=== PATIENT | male | born 1985 | race African-American/Black ===

== ENCOUNTER 2018-03-06 22:32 | Emergency (ER) | payer SELFPAY ==
[2018-03-06 23:42] LABS: Base Excess-Venous 1.8 mmol/L (0 (+/- 2.5)); Bicarbonate (HCO3v) 26.4 mmol/L (1.0-85.0); CO2 Tension (PvCO2) 40.5 mmHg (41.0-51.0); Calcium, Ionized 1.12 mmol/L (1.12-1.32); Hemoglobin - Calc 14.3 g/dL (12.0-18.0); O2 Tension (PvO2) 60.3 mmHg (35.0-45.0); Potassium 3.9 mmol/L (3.4-4.7); T. Carbon Dioxide 27.6 mmol/L (1.0-85.0); pH (Venous) 7.422 (7.35-7.45); vO2 Saturation-calc 91.2 % (94-98)
--- NOTE | 2018-03-07 10:53 | RAD ---
LEFT SHOULDER 3 VIEWS: Date: 03/06/18 HISTORY: Left shoulder injury. FINDINGS: Acromioclavicular and glenohumeral alignment are within normal limits. No acute fracture, dislocation , or aggressive osseous erosions. Irregular configuration of the acromion is favored to represent a c ongenital process. IMPRESSION: No acute osseous abnormalities are demonstrated. POS: CORTES
== END 2018-03-07 00:10 | disposition home or self-care (01) ==
LOC: ERS 22:32
DX: M54.16 Radiculopathy, lumbar region (principal); R73.9 Hyperglycemia, unspecified; G62.9 Polyneuropathy, unspecified; F17.210 Nicotine dependence, cigarettes, uncomplicated; Z71.6 Tobacco abuse counseling; Z79.899 Other long term (current) drug therapy
CPT/HCPCS: 36416; 82330; 82435; 82803; 84132; 84295; 85014; 99406

== ENCOUNTER 2018-03-21 13:20 | Inpatient (IN) | payer OTHER ==
--- NOTE | 2018-03-21 16:26 | MRI ---
MRI OF THE LUMBAR SPINE 03/21/18 COMPARISON: None. HISTORY: Two week history of back pain, weakness and falls with back pain and incontinence. TECHNIQUE: Multiplanar and multisequence MR imaging of the lumbar spine is provided without contrast media. FINDINGS: There is diffuse significant central canal stenosis secondary to congenitally short pedicles. The sag ittal STIR imaging demonstrates no focal area of osseous marrow edema. There is no significant anterolisthesis or retrolisthesis noted. T12-L1: There is mild bilateral facet hypertrophy, disc space narrowing, disc desiccation, and mild c entral canal stenosis with no significant neural foraminal stenosis on either side. L1-2: There is disc space narrowing and disc desiccation with anterior osteophyte formation and minim al disc bulge. There is mild central canal stenosis. No neural foraminal stenosis. L2-3: Mild bilateral facet hypertrophy. Intervertebral disc height and signal intensity is within nor mal limits. Mild central canal stenosis and mild left neural foraminal stenosis. L3-4: Mild bilateral facet hypertrophy. Intervertebral disc height and signal intensity is within nor mal limits. Mild central canal stenosis and mild bilateral neural foraminal stenosis. L4-5: Mild bilateral facet hypertrophy and hypertrophy of the ligamentum flavum. Disc space narrowing , disc desiccation, disc bulge and right paracentral annular tear present. Mild/moderate central raquel l stenosis noted with moderate lateral recess stenosis on the right. Mild bilateral neural foraminal stenosis, right greater than left. L5-S1: Mild disc bulge. Mild bilateral facet hypertrophy. Mild central canal stenosis. Mild bilateral neural foraminal stenosis. Imaged retroperitoneal structures appear grossly unremarkable. IMPRESSION: Congenitally short pedicles lead to diffuse central canal stenosis. Superimposed degenerative change noted, most prominent at the L4-5 level as discussed above. POS: CORTES
[2018-03-21] MEDS ORDERED: Dexamethasone 4 mg/ml Vial ONE (17:30)
--- NOTE | 2018-03-21 17:39 | MRI ---
CERVICAL SPINE MRI WITHOUT CONTRAST 03/21/18 COMPARISON: None. HISTORY: Bilateral lower extremity paresthesias, weakness, falls TECHNIQUE: Multiplanar and multisequence MR imaging of the cervical is provided without contrast. FINDINGS: The sagittal STIR imaging demonstrates no focal area of osseous marrow edema. The cervical vertebral body height and alignment appears grossly unremarkable. There is diffuse central canal stenosis on the basis of congenitally short pedicles. The craniocervic al junction is intact. There is mild degenerative change at the atlantoaxial interspace. C2-3: Mild central canal stenosis. No significant neural foraminal stenosis. C3-4: Mild central canal stenosis. Mild bilateral neural foraminal stenosis, left greater than right. C4-5: Disc space narrowing and disc desiccation and anterior osteophyte formation noted. Disc bulge w ith central disc herniation noted. This cause severe central canal stenosis with flattening of the ce rvical cord. There is also probable increased T2 signal intensity within the cord at the C4-5 level s uggesting cord edema. There is moderate bilateral neural foraminal stenosis at C4-5 as well. C5-6: There is disc space narrowing and disc desiccation and disc bulge effacing the ventral thecal s ac and causing a mild to moderate degree of central canal stenosis. Moderate left and mild right neur al foraminal stenosis. C6-7: No significant central canal or neural foraminal stenosis. C7-T1: no significant central canal or neural foraminal stenosis. No worrisome focal area of osseous marrow signal abnormality. IMPRESSION: Congenitally short pedicles lead to diffuse cervical canal stenosis. At C4-5, there is disc space na rrowing and disc desiccation with a central disc herniation with severe central canal stenosis, adrianna ening of the cervical cord and increased signal intensity within the cervical cord suggesting edema. A neurosurgical consultation is recommended. Results called to Dr. Helms at 5:10 p.m., 03/21/18. Code CR POS: KANE
--- NOTE | 2018-03-21 17:55 | MRI ---
MRI OF THE THORACIC SPINE 03/21/18 COMPARISON: None. HISTORY: Paresthesias of the lower extremities, weakness and falls, abnormal reflexes. TECHNIQUE: Multiplanar and multisequence MR imaging of the thoracic spine is provided without contrast. FINDINGS: The sagittal STIR imaging demonstrates no focal area of osseous marrow edema. Thoracic vertebral body height and alignment appears within normal limits. T1-2: No significant central canal or neural foraminal stenosis. T2-3: No significant central canal or neural foraminal stenosis. T3-4: No significant central canal or neural foraminal stenosis. T4-5: No significant central canal or neural foraminal stenosis. T5-6: No significant central canal or neural foraminal stenosis. T6-7: No significant central canal or neural foraminal stenosis. T7-8: There is a central disc herniation which effaces the ventral thecal sac and abuts the ventral a spect of the cord with a mild degree of central canal stenosis. No significant neural foraminal steno sis. T8-9: There is a right paracentral disc herniation effacing the ventral thecal sac and abutting the v entral aspect of the cord with mild central canal stenosis. No significant neural foraminal stenosis. T9-10: There is a central disc herniation which effaces the ventral thecal sac and abuts the ventral aspect of the cord. No significant central canal or neural foraminal stenosis. T10-11: No significant central canal or neural foraminal stenosis. T11-12: No significant central canal or neural foraminal stenosis. T12-L1: No significant central canal or neural foraminal stenosis. There is no abnormal signal intensity identified within the thoracic cord. IMPRESSION: Multilevel degenerative disc disease with no severe central canal or neural foraminal stenosis seen w ithin the thoracic spine. POS: KANE
[2018-03-21] MEDS ORDERED: Ondansetron HCl/PF 4 MG/2 ML Vial IVP PRN (18:55)
[2018-03-21] MEDS ORDERED: Acetaminophen/Codeine 30-300mg Tablet PO PRN (18:55)
[2018-03-21] MEDS ORDERED: Morphine 4 MG/ML VIAL SLOW IVP PRN ×2 (19:15→19:16)
[2018-03-21] MEDS ORDERED: Ondansetron ODT 4 MG TAB PO PRN (19:18)
[2018-03-21 19:23] LABS: PTT 30.1 SEC (22.9-36.1)
[2018-03-21 19:30] LABS: INR-International Normal Ratio 1.1; Prothrombin Time 14.3 SEC (12.0-14.7)
--- NOTE | 2018-03-21 20:41 | CT ---
CERVICAL SPINE CT WITHOUT CONTRAST: 03/21/18 COMPARISON: None. HISTORY: Two weeks of inability to ambulate, neck pain, C4-5 stenosis seen on recent cervical spine MRI. TECHNIQUE: Serial axial CT imaging at 2.5 mm intervals from the skull base through the lung apices without contr ast. Coronal and sagittal reformatted imaging obtained. FINDINGS: The imaged lung apices are unremarkable. There is complete opacification of the imaged mastoid air cells bilaterally. The C1 ring is intact. The occipital condyles, dense, and C1-2 articulation demonstrate no acute findings. The atlantoaxial interspace, craniocervical junction, and cervicothoracic junction demonstrate no acu te findings. There is diffuse central canal stenosis on the basis on congenitally short pedicles. Evaluation for central canal and/or neural foraminal stenosis is limited on routine CT and was better performed on recent cervical spine MRI also performed 03/21/18. C2-3: Mild central canal stenosis. No osseous cause of neural foraminal stenosis. C3-4: Mild central canal stenosis. No osseous cause of significant neural foraminal stenosis. C4-5: There is disc space narrowing and prominent posterior osteophyte formation associated with disc bulge and central disc herniation. Severe central canal stenosis. Facet and uncovertebral osteophyte formation noted with enhancement on the neural foramina and moderate bilateral neural foraminal sten osis. C5-6: No osseous cause of significant central canal or neural foraminal stenosis. C6-7: No osseous cause of significant central canal or neural foraminal stenosis. C7-T1: No osseous cause of significant central canal or neural foraminal stenosis. There is a bifid spinous process of C7. No worrisome lytic or blastic bone lesion. No acute osseous abnormality is noted. The thyroid gland is diffusely enlarged. This could be better assessed on nonemergent followup thyroi d ultrasound. IMPRESSION: 1. Multilevel degenerative change noted within the cervical spine. The most significant finding being a disc osteophyte complex at C4-5 with resultant severe central canal stenosis, better assessed on recent cervical spine MRI. No fracture/dislocation seen. 2. Bilateral nonspecific mastoid air cell opacification. 3. Nonspecific enlargement of the thyroid gland. POS: JWNichelle
[2018-03-21] MEDS: Sodium Chloride 0.9% 1,000 ML IV SCH (21:52)
[2018-03-21] MEDS: Dexamethasone 4 mg/ml Vial SLOW IVP SCH (21:52)
[2018-03-21] MEDS: Morphine 4 MG/ML VIAL SLOW IVP PRN (21:53)
[2018-03-21] MEDS ORDERED: Dexamethasone 4 MG TAB PO SCH (22:00)
--- NOTE | 2018-03-21 22:21 | HP ---
HISTORY OF PRESENT ILLNESS: Mr. Duvall is a 33-year-old male who I saw in the emergency department [facility]. He presents with upper and lower extremity weakness bilateral left greater than right. He fell and hit his head about 2 weeks ago, getting a shower. Since that time, he is unable to bear weight with his legs. He has weakness x2 weeks, stabbing pain in the low back, legs, some numbness in the hands and arms, and weakness in the left greater than right arm. He went to the emergency department and was evaluated for numbness in his hands and feet on 03/06/2018 after his fall. An x-ray of the shoulder was completed and he was discharged home. Today MRI of the cervical spine was completed and shows a large C4-5 bulging disk with severe compression on the spinal cord. There is some edema associated with the impingement of the spinal cord. Thoracic MRI shows normal and lumbar MRI shows a congenitally short pedicles that lead to diffuse central canal stenosis, superimposed degenerative changes, most prominent at L4-5 levels. Neurosurgery was consulted because of the severe central canal stenosis and spinal cord impingement at C4-C5 with associated edema. ALLERGIES: No known drug allergies. CURRENT MEDICATIONS: 1. Gabapentin 300 mg oral 3 times a day. 2. Cyclobenzaprine 10 mg oral 3 times a day. PAST MEDICAL HISTORY: Includes low back and neck pain, shoulder pain. Patient has also been having urinary incontinence for the last 2 days. PAST SURGICAL HISTORY: No surgical history. PSYCHIATRIC HISTORY: No previous psychiatric history. SOCIAL HISTORY: Patient denies alcohol use, denies drug use. Patient currently uses tobacco, smokes cigarettes daily, has smoked for 10 years 3-4 cigarettes per day. PHYSICAL EXAMINATION: VITAL SIGNS: Stable. HEENT: Normocephalic, atraumatic. Hearing intact. Moist mucous membranes. Trachea is midline. Eyes: Pupils are equal and reactive to light. Extraocular muscles are intact. Sclerae is white, nonicteric. NECK: Range of motion limited due to pain. Positive Lhermitte's when looking up. MUSCULOSKELETAL: Upper extremity, left greater than right arm weakness as well as numbness in the hands and arms. Lower extremity, left greater than right weakness in the left lower extremity numbness in the feet and some numbness in the legs. Nondermatomal. Pulses are +2 in the lower extremities and upper extremities bilaterally. RESPIRATORY: Patient has bilateral symmetric chest rise, appears to be no shortness of breath. CARDIOVASCULAR: Patient has regular rate and rhythm. Normal S1, S2, heart sounds. No distal cyanosis or clubbing noted. NEUROLOGIC: Cranial nerves II-XII are grossly intact. Speech is fluent. He answers my questions appropriately. Patient has positive Babinskis, +4 reflexes in the lower extremity and upper extremities bilaterally. Positive Jasbir sign. Positive Lhermitte sign. Weakness in the legs and unable to walk. REVIEW OF SYSTEMS: Ten-point review of systems complete is otherwise negative, unless stated above in the HPI. PLAN: From neurosurgical standpoint, we will admit the patient to surgical non- ortho floor. We will control his pain overnight, since he has recently had some chicken 30 minutes before my exam, we will schedule an Anterior cervical diskectomy and fusion, possible posterior laminectomy and fusion for tomorrow morning. Ancef has been ordered to go to the OR with the patient in the morning. Consent has been written. I also ordered a CT of the cervical spine, which will help us should we decide to do a posterior fusion. We will keep the patient n.p.o. overnight. I have also consulted Physical therapy, Occupational therapy and Case management. He will also need a rehab consult postoperatively because of his weakness and inability to walk and intermittent urinary incontinence. If there are any further questions, contact Neurosurgery. WILLIAMS
[2018-03-21 23:46] VITALS: BMI 38.7
[2018-03-22] MEDS ORDERED: CEFAZOLIN/Water 2 GM/20 ML SYRINGE SLOW IVP SCH (06:30)
[2018-03-22] MEDS: Dexamethasone 4 mg/ml Vial SLOW IVP SCH ×3 (06:57→21:11)
[2018-03-22] MEDS: Sodium Chloride 0.9% 1,000 ML IV SCH ×2 (06:58→19:20)
[2018-03-22] MEDS ORDERED: CEFAZOLIN/Water 2 GM/20 ML SYRINGE ONE (09:31)
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
[2018-03-22] MEDS ORDERED: Thrombin 5000 UNITS/5 ML VIAL ONE (10:36)
[2018-03-22] MEDS ORDERED: Sodium Chloride 0.9% 20 ML ONE (10:36)
[2018-03-22] MEDS ORDERED: Bacitracin Zinc Ointment 30 gm TUBE ONE (10:36)
[2018-03-22] MEDS ORDERED: Fentanyl 250 MCG/5 ML VIAL ONE (10:56)
[2018-03-22] MEDS ORDERED: HYDROmorphone 0.5 MG/0.5 ML SYRINGE ONE (10:56)
[2018-03-22] MEDS ORDERED: Vecuronium 10 MG VIAL ONE ×2 (11:11→11:38)
[2018-03-22] MEDS ORDERED: Glycopyrrolate 0.2 MG/ML 5 ML SYRINGE ONE (11:38)
[2018-03-22] MEDS ORDERED: PHENYLEPHRINE-NS 100 MCG/ML 10 ML SYRINGE ONE (11:38)
[2018-03-22] MEDS ORDERED: Lidocaine 1% PF 5 ML VIAL ONE (11:38)
[2018-03-22] MEDS ORDERED: Dexamethasone 20 MG/5 ML VIAL ONE (11:38)
[2018-03-22] MEDS ORDERED: PROPOFOL 200 MG/20 ML VIAL ONE (11:38)
[2018-03-22] MEDS ORDERED: Sodium Chloride 0.9% 10 ML ONE (15:34)
[2018-03-22] MEDS ORDERED: HYDROmorphone 2 MG/ML VIAL SLOW IVP PRN (18:18)
[2018-03-22] MEDS ORDERED: Ondansetron HCl/PF 4 MG/2 ML Vial IVP PRN (18:18)
[2018-03-22] MEDS ORDERED: Promethazine HCl 25 MG/ML VIAL IM PRN (18:18)
[2018-03-22] MEDS ORDERED: Promethazine HCl 25 MG/ML VIAL SLOW IVP PRN (18:18)
[2018-03-22] MEDS ORDERED: Fentanyl 100 MCG/2 ML VIAL ONE (18:40)
[2018-03-22] MEDS: Morphine 4 MG/ML VIAL SLOW IVP PRN (21:11)
[2018-03-22] MEDS ORDERED: CEFAZOLIN 1 GM in Sodium Chloride 0.9% 100 ML IVPB SCH (22:00)
[2018-03-23] MEDS: Cyclobenzaprine 10 MG TAB PO PRN ×3 (00:28→18:06)
[2018-03-23] MEDS: Acetaminophen/Codeine 30-300mg Tablet PO PRN ×6 (00:28→21:22)
[2018-03-23] MEDS: Sodium Chloride 0.9% 1,000 ML IV SCH ×2 (05:08→13:40)
[2018-03-23] MEDS: Dexamethasone 4 mg/ml Vial SLOW IVP SCH ×3 (06:15→21:22)
--- NOTE | 2018-03-23 07:22 | PRG ---
DATE OF SERVICE: 03/23/2018 Mr. Duvall is a 33-year-old male status post day 1 from a posterior C3-C6 laminectomy and C4-C5 ACDF. This morning he does not notice any resolution of numbness or more strength in his upper extremitie s or lower extremities. He has not attempted to sit up or walk and he has not had any rounds of phys ical therapy to this point. I explained to him because of the severe compression on the spinal cord that it may take up to a year to get the maximum results from the surgery and the decompressive surge ry. I explained to him it is not likely to get back to 100% baseline as a baseline and he will likel y need some rehab upon discharge. There were no acute events overnight and his vital signs have been stable. Pain is well controlled with oral pain medication. He is able to tolerate regular diet. I ncision is clean, dry, and intact. Two sutures on the neck and absorbable sutures on the anterior ne ck. If there are any further questions, please feel free to contact Neurosurgery. We will have PT and OT work with him today and get him up to a chair. Keep SCDs for VTE prophylaxis.
--- NOTE | 2018-03-23 08:03 | PRG ---
DATE OF SERVICE: 03/23/2018 Puma Duvall is 1 day out from anterior to posterior cervical decompression for spondylitic myelopat hy worsened to a paraparesis by a fall in a subacute fashion. Mr. Duvall had surgery yesterday and he feels the sensation and control of his legs is improved. The left hand is not where he wants it to be, but it is not worse. He has some pain in the left shoulde r from his fall and I think he has a shoulder injury on top of the spinal cord issues. On examination, I see more fluent movements of the feet. There is still sustained clonus, but the up per motor neuron weakness he has is slightly improved. I am not sure he is ready to stand, but will start the process of getting occupational and physical therapy to work with him. He is going to need extensive amount of therapy and would benefit from inpatient rehabilitation. If his shoulder is an impediment to a rehabilitation we will have Orthopedics evaluate the joint itself.
--- NOTE | 2018-03-23 08:40 | OP ---
DATE OF PROCEDURE: 03/22/2018 SURGEON: Janie Marcos M.D. PASSENGER SERVICE SUPERVISOR: Pino Manley PA-C. PREOPERATIVE INDICATION: Prevent further neurological deterioration. 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 OPERATIVE PROCEDURES: 1. Decompressive laminectomy, medial facetectomy, C3, C4, C5, and C6. 2. Second operation during same anesthetic, anterior cervical diskectomy, intervertebral arthrodesis , placement of intervertebral biomechanical device, anterior cervical plating C4-C5, local morselized autograft, morselized allograft under operating microscope. PREOPERATIVE MEDICATION: Ancef 2 grams IV, Decadron 10 mg IV. DRAIN NUMBER: Zero. DRAIN TYPE: None. OPERATIVE IN DETAIL: Operation #1: The patient was brought to the operating room. General endotracheal anesthesia was in duced. The patient was carefully positioned prone on the operating table with his head immobilized i n Grayson melinda packager head attached to the skull and the Grayson attachment for the operating tab le. A lateral fluoro radiograph was used to plan our incision. Hair was removed from the back of th e scalp and neck with electric clippers. Her incision was marked radiographically in the back and ne ck was sterilely prepped and draped. We opened with a 10 blade knife and controlled bleeding with bi polar and monopolar cautery. We used monopolar cautery to dissect through subcutaneous tissues to th e ligamentum nuchae. We incised ligamentum in the midline and reflected the paraspinal muscles off t he spinous process and lamina of C6, C5, C4, C3, and the inferior portion of C2. A lateral fluoro ra diograph confirmed the levels upon which we were operating. We then placed self-retaining retractors , carried our dissection out to the facet joints and used a high-speed drill with a cony bit to th in the lamina on either side at C6, C5, C4 and C3. Using 1 and 2 mm Kerrison rongeurs, we fashioned complete laminotomy on both sides at C6, C5, C4 and C3. We then carefully cut across the yellow liga ment at C2-3 and C6-7. We controlled epidural veins posteriorly and freed L4 lamina from the dura. The dura decompressed well. We carried our laminectomy defect laterally until we encountered the fac et joints and we were lateral to the dura. We waxed the bone edges. We controlled bleeding with gen tle bipolar cautery. We irrigated copiously with bacitracin irrigation. We closed the wound in shakira omic layers. We applied a sterile dressing. Operation #2: Under the same anesthetic, the patient was loosened from the Marquez attachment. He was carefully rolled in the supine position on the second operative table and head supported by gel-f illed donut shaped head rest. A Marquez melinda headholder was removed. Hair was removed from the a nterior portion of the neck. A lateral fluoro radiograph was used to plan our incision. The rest of the neck was sterilely prepped and draped. We opened with a 10 blade knife and controlled bleeding with bipolar cautery. We dissected sharply to the platysma and cut this muscle in line with our inci vasu. We continued our dissection medial to the sternocleidomastoid lateral to the trachea and esoph mayra until we arrived to the prevertebral space. We placed a marker at C3-4, took a lateral fluoro r adiograph. We counted down to C4-5 and placed distraction pins at C4 and C5 and distracted across th e intervening interspace. We incised the interspace with a 15 blade knife and removed disk contents using curettes and rongeurs. The operative microscope was brought in the field. Under microscopic magnification using microsurgical techniques, we removed the remainder of the inter vertebral disk. We accessed the ventral epidural space with a micro curet and removed the posterior longitudinal ligament with a Kerrison rongeur across and can entire interspace. We removed posterior osteophytes from C4 and C5 across the entire interspace until the dura was well decompressed. I made sure both foramina were well decompressed. We could visualize a pulsatile spin al cord through the dura. We irrigated copiously, bacitracin irrigation. Curettes were used to prep are the endplates for grafting and we measured the height of the interspace with a bone rasp to 7 mm. A 7 mm PEEK intravertebral graft was brought in the field. This was loaded with demineralized bone matrix and morselized autograft. The autograft was prepared from our laminectomy bone, which was cl eaned of all soft tissue attachments, morselized and added to demineralized bone matrix as our fusion substrate. The PEEK graft was advanced into the interspace under radiographic guidance to the appro priate depth and then the operative microscope was taken back out of the field. Distraction pins wer e removed. A 12 mm anterior cervical plate was brought into the field. We drilled ship pilot dispatcher holes throu gh the plate into the vertebral body at C4 and C5. We affixed the plate using 14 mm screws. Fixed a ngle screws were used below and variable angle screws above. We engaged the locking mechanism over e ach of the 4 screws. We irrigated copiously with bacitracin irrigation. Hemostasis was excellent. We closed the wound in anatomic layers. We applied a sterile dressing. This was a clean case and no contamination.
[2018-03-23] MEDS: Morphine 4 MG/ML VIAL SLOW IVP PRN (10:43)
--- NOTE | 2018-03-23 14:34 | RAD ---
CERVICAL SPINE 4 VIEWS: Date: 03/23/18 HISTORY: Neck pain. Prior surgery. FINDINGS: Anterior fixation hardware is in place at the C4-5 level without perihardware lucency. Cervicothoraci c junction is obscured. No displaced fractures are apparent. Odontoid process is intact. IMPRESSION: Postoperative changes. No acute osseous abnormalities are demonstrated. POS: TORRES
[2018-03-24] MEDS: Acetaminophen/Codeine 30-300mg Tablet PO PRN ×4 (02:59→21:22)
[2018-03-24] MEDS: Cyclobenzaprine 10 MG TAB PO PRN ×3 (02:59→21:23)
[2018-03-24] MEDS: Dexamethasone 4 mg/ml Vial SLOW IVP SCH ×3 (06:54→21:22)
--- NOTE | 2018-03-24 06:58 | PRG ---
DATE OF SERVICE: 03/24/2018 Mr. 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 Mr. Duvall had a pop in his neck when he got up yesterday. X-rays are reassuring and his neurologica l examination is improved this morning. He can extend the smallest digit of the left hand, whereas y esterday before surgery he could not, he feels better sensation on that side. Mr. Duvall has had some small improvement since surgery which is a very good sign. He needs to stacie nue his improvement with the help of physical and occupational therapy. This would give him the best chance of getting back to ambulatory and independent status. Insurance will be an issue, but we are going to try to push for him and advocate on his behalf to get into inpatient rehabilitation.
[2018-03-24] MEDS: Sodium Chloride 0.9% 1,000 ML IV SCH ×3 (07:34→15:24)
[2018-03-24] MEDS: Morphine 4 MG/ML VIAL SLOW IVP PRN (09:19)
[2018-03-25] MEDS: Acetaminophen/Codeine 30-300mg Tablet PO PRN ×5 (00:46→21:07)
[2018-03-25] MEDS: Sodium Chloride 0.9% 1,000 ML IV SCH ×2 (06:16→13:49)
[2018-03-25] MEDS: Cyclobenzaprine 10 MG TAB PO PRN ×2 (06:17→17:03)
[2018-03-25] MEDS: Dexamethasone 4 mg/ml Vial SLOW IVP SCH ×3 (06:18→21:05)
[2018-03-25] MEDS ORDERED: Magnesium Citrate 300 ML BOT PO SCH (09:00)
[2018-03-25] MEDS: Docusate 100 MG CAP PO SCH ×2 (09:33→21:05)
[2018-03-25] MEDS: Bisacodyl 10 MG SUPP PR PRN (09:33)
[2018-03-25] MEDS ORDERED: hydrALAZINE 20 MG/ML VIAL SLOW IVP PRN (09:48)
--- NOTE | 2018-03-25 10:41 | PRG ---
DATE OF SERVICE: 03/25/2018 SUBJECTIVE: Mr. Duvall is a 33-year-old male who I saw in his room this morning. He has been working with Occupational Therapy and Physical Therapy. He is status post anterior cervical diskectomy and fusion at L4-L5 for large HNP and posterior laminectomy at L3 through L6. Case management consulted. The case management associate spoke to [facility] liaison who stated there is no [facility] beds are available. Please screen the patient for disability. Case management will continue to follow and find placement for patient along with the help of admin. Continue to work with Physical Therapy today. Patient continues to havemild weakness in the left upper and lower extremities > right, and some of the numbness and tingling in his arms, is starting to resolve. He still has significant weakness in the LE and is unable to walk by himself. If there is any further questions, please feel free to contact Neurosurgery. WILLIAMS
--- NOTE | 2018-03-25 11:21 | PRG ---
DATE OF SERVICE: 03/25/2018 SUBJECTIVE: Mr. Duvall is recovering from his anterior, posterior decompression fusion for severe ce rvical spondylitic myelopathy and paraparesis. In addition, the legs being unable to support him bef ore the surgery, he had no functional use of the left hand is now making progress. He is extending a ll 5 fingers of the left hand now. He does not get middle or ring finger fully extended, and that th ey are moving more than they had before in the strength and the hand is improved. Pain from surgery is abating. He has a slightly better control of his legs. Mr. Duvall is unable to walk. He will need a wheelchair and teaching to get in and out of a wheelcha ir. He will need bowel and bladder care teaching, need physical and occupational therapy to make the best recovery again. Anticipate that if he does not get this intervention, over the coming weeks th at he will return to the hospital with sacral decubitus ulcers, bowel and bladder issues, perhaps abhi n DVT and we could avoid those hospitalizations if we have placement for rehabilitation as unfortunat chrystal hard to come back as the patient does not have insurance. We have been keeping him in the hospit al working with our physical therapist and occupational therapist or social scientist and classification case manager can talk with our hospital administration about trying to find him inpatient rehabilitation. As long as he is in the hospital, we will continue to care for him.
--- NOTE | 2018-03-25 17:13 | ULT ---
BILATERAL LOWER EXTREMITY VENOUS DUPLEX SONOGRAM: 03/25/18 HISTORY: Bilateral leg pain and edema. FINDINGS: Each common femoral vein, greater saphenous junction were evaluated along with each femoral, deep fem oral, popliteal, and posterior tibial vein. There is good color and spectral doppler flow, compressio n, and augmentation. IMPRESSION: No sonographic evidence of DVT within either lower extremity. POS: TORRES
[2018-03-26] MEDS: Sodium Chloride 0.9% 1,000 ML IV SCH ×3 (00:05→19:29)
[2018-03-26] MEDS: Dexamethasone 4 mg/ml Vial SLOW IVP SCH ×3 (05:28→22:14)
[2018-03-26] MEDS: Acetaminophen/Codeine 30-300mg Tablet PO PRN ×4 (05:31→22:24)
--- NOTE | 2018-03-26 07:29 | PRG ---
DATE OF SERVICE: 03/26/2018 I saw Mr. Duvall in his hospital room this morning. He is making slow progress after his anterior, p osterior cervical decompression with fusion for extreme cervical spondylitic myelopathy. A place has been identified for him in [place]. I suspect this is the [facility] where he can get some rehabilitation. I think that placement is better than home. He is not safe for his activities of daily living and can place weight on his leg only to transfer. He will need to work a ggressively with physical therapy to regain balance and function in lower extremities and to work on his left upper extremity with Occupational Therapy. I am pleased with his progress thus far. His incisions look good. He will follow up in the office a f[facility].
--- NOTE | 2018-03-26 08:20 | PRG ---
DATE OF SERVICE: 03/26/2018 Mr. Duvall is a 33-year-old male, who I saw in his room this morning. He is status post anterior cer vical diskectomy and fusion at C4-5 and posterior laminectomy at C3-C6. Because of the large disk bu lge at C4-5, he has significant weakness in his upper and lower extremities. He is stronger on the r ight upper and lower extremities, greater than the left. He is able to sit up at bedside with physic al therapy and transferred to a chair. Case management has been working on placement, and because of insurance purposes, he has agreed to any facilities within [address] of [facility]. It i s likely that he will need a [facility] inpatient rehabilitation bed. Choice letters have been signed odalys Carvajal and Alice Dominguez. Overnight, there have been no acute events. His vital signs h ave been stable. He has been afebrile. If there are any further questions, please feel free to cont act Neurosurgery.
[2018-03-26] MEDS: Docusate 100 MG CAP PO SCH ×2 (08:25→19:35)
[2018-03-27] MEDS: Sodium Chloride 0.9% 1,000 ML IV SCH ×2 (05:31→16:59)
[2018-03-27] MEDS: Acetaminophen/Codeine 30-300mg Tablet PO PRN ×3 (05:41→21:11)
[2018-03-27] MEDS: Dexamethasone 4 mg/ml Vial SLOW IVP SCH ×3 (05:41→21:11)
--- NOTE | 2018-03-27 07:24 | PRG ---
DATE OF SERVICE: 03/27/2018 I saw Mr. Duvall in his hospital room this morning. He is making a slow, but steady recovery from ce rvical spondylitic myelopathy and greater than right arm weakness, all from a cervical stenosis and i ntervertebral disk disease over multiple segments of the cervical spine. Mr. Duvall had anterior, posterior decompression fusion over the weekend and is getting inpatient th erapy here while he is with us. Arrangements have been made for him to transfer to [facility] facility for continued therapy and I th ink that is exactly what he needs. Ultrasound of lower extremities was done recently and negative fo r DVT. We will continue mobilization. If his not mobilizing quickly and high risk for DVT, then, a prophylactic dose of low molecular weight heparin could start next week. We will continue to anticip ate transfer.
--- NOTE | 2018-03-27 07:45 | PRG ---
DATE OF SERVICE: 03/27/2018 SUBJECTIVE: Mr. Duvall is a 33-year-old male who I saw in his room this morning. He continues to goodwin ve left upper extremity weakness. The sensation is starting to resolve in his fingers. He has more range of motion with his fingers. Yesterday, he was able to stand up, transfer to a chair, take 3 st eps to the left and three steps to the right and go from sitting to standing twice. It is an improve ment from yesterday. He continues to have left lower leg weakness and realized mostly on his right l eg at this point for pulling his strength. Vital signs overnight have been stable and there are no acute deficits. Case management visited him 2 days ago in the setting of inpatient rehabilitation at [facility], not confirmed. We will continue to work with physical therapy until this transfer takes place. If there are any further questions, please feel free to contact Neurosurgery.
[2018-03-27] MEDS: Docusate 100 MG CAP PO SCH ×2 (08:37→21:11)
[2018-03-27] MEDS ORDERED: CEFAZOLIN 1 GM, Syringe 2.5 ML in Sterile Water 7.5 ML SLOW IVP SCH (22:00)
[2018-03-28] MEDS: Sodium Chloride 0.9% 1,000 ML IV SCH ×2 (02:26→14:16)
[2018-03-28] MEDS: Acetaminophen/Codeine 30-300mg Tablet PO PRN ×3 (05:54→21:19)
[2018-03-28] MEDS: Dexamethasone 4 mg/ml Vial SLOW IVP SCH ×3 (05:54→21:19)
[2018-03-28] MEDS: Docusate 100 MG CAP PO SCH ×3 (08:48→21:21)
--- NOTE | 2018-03-28 13:51 | PRG ---
DATE OF SERVICE: 03/28/2018 SUBJECTIVE: Mr. Duvall is hospital day #7 following anterior, posterior decompression. He is doing well this morning. States he feels if he is pleased with his progress. His anterior cervical wound is healing well and he is moving all extremities to command. He is able to raise his upper extremiti es antigravity and both of his lower extremities. He bends them up at the hips and knees with good s trength, although stable triparesis. Overall, we are working towards rehabilitation. We will contin ue in this regard.
[2018-03-28] MEDS: Bisacodyl 10 MG SUPP PR PRN (21:20)
[2018-03-29] MEDS: Docusate 100 MG CAP PO SCH ×3 (00:42→22:00)
[2018-03-29] MEDS: Sodium Chloride 0.9% 1,000 ML IV SCH ×3 (00:55→19:50)
[2018-03-29] MEDS: Acetaminophen/Codeine 30-300mg Tablet PO PRN ×3 (02:13→22:00)
[2018-03-29] MEDS: Dexamethasone 4 mg/ml Vial SLOW IVP SCH ×3 (05:54→22:30)
[2018-03-29] MEDS: Bisacodyl 10 MG SUPP PR PRN ×2 (09:00→22:01)
[2018-03-29] MEDS: Cyclobenzaprine 10 MG TAB PO PRN (15:40)
[2018-03-30] MEDS: Cyclobenzaprine 10 MG TAB PO PRN (04:00)
[2018-03-30] MEDS: Acetaminophen/Codeine 30-300mg Tablet PO PRN ×4 (04:00→22:02)
[2018-03-30] MEDS: Sodium Chloride 0.9% 1,000 ML IV SCH ×2 (05:55→14:43)
[2018-03-30] MEDS: Dexamethasone 4 mg/ml Vial SLOW IVP SCH ×3 (06:00→21:52)
[2018-03-30] MEDS: Docusate 100 MG CAP PO SCH ×2 (08:42→21:51)
--- NOTE | 2018-03-30 11:00 | ULT ---
ULTRASOUND WITH DOPPLER DUPLEX VENOUS LOWER EXTREMITIES BILATERAL: HISTORY: 33-year-old male with spinal cord injury with immobility with increased risk for DVT. TECHNIQUE: Color flow Doppler, spectral waveform analysis of pulsed Doppler, and person-scale imaging with ayde vasu and augmentation, were used to evaluate the bilateral common femoral, femoral, popliteal, bottle blower ior tibial, and superficial femoral, veins; and the proximal portions of the profunda femoral and gre ater saphenous, veins. FINDINGS: There is normal compressibility, demonstration of blood flow by color Doppler and pulsed Doppler, and response to augmentation, in all interrogated veins. There is minimal soft tissue edema in the dista l left leg. IMPRESSION: 1. No deep vein thrombosis in the left lower extremities. 2. Minimal soft tissue edema in the distal left leg. casper POS: CORTES
[2018-03-31] MEDS: Sodium Chloride 0.9% 1,000 ML IV SCH ×3 (00:05→21:21)
[2018-03-31] MEDS: Dexamethasone 4 mg/ml Vial SLOW IVP SCH ×3 (06:27→21:21)
--- NOTE | 2018-03-31 07:00 | PRG ---
DATE OF SERVICE: 03/30/2018 I visited Mr. Duvall in his hospital room this morning. He worked with physical therapy over the [facility]. post tensioning ironworker is looking for placement for him. Ultrasounds of the lower extremities have bee n negative for DVT. He will need physical therapy, occupational therapy, and changes to his home to make it safe for discharge.
--- NOTE | 2018-03-31 07:03 | PRG ---
DATE OF SERVICE: 03/31/2018 Mr. Duvall is 9 days out from anterior, posterior decompression fusion for cervical spondylitic myelo ashley with subacute progression paraparesis. Mr. Duvall worked with physical therapy yesterday. I was called by social work yesterday afternoon t hat it is very difficult to place him in any facility where he can get therapy due to insurance issue s. He was unaware of that conversation. Overnight, the vitals have been stable. A venogram done ye morning was negative for DVT. I do not see recorded fever. Blood pressures have been 130s to 140s. His neurological examination i s improving with better strength in hand. Legs are still quite stiff and spastic and his gait is uns teady. Before Mr. Duvall can be discharged from the hospital to home he will need more extensive therapy. Sue moreira has yet to make one lap around the third floor. He has not transferred himself from his bed to a hower and back independently. He does not have a shower chair at home. He does not bars next to his commode to help lift him from the commode. He does have a walker. I think the plan over the next few days is to work with our therapist on home exercises that he can d o and to identify the safety concerns for home. He may need a ramp for smooth entry into and out of the house. He would definitely need a shower chair and a walker and installation of safety bars in t he bathroom would be advisable as well. He is not independent yet.
--- NOTE | 2018-03-31 07:33 | PRG ---
DATE OF SERVICE: 03/29/2018 SUBJECTIVE: Mr. Duvall continues to demonstrate neurological stability for this anterior and posteri or wounds are healing very well. Biggest issue at this point is constipation. He does have positive flatus. I have spoken to him that this was simply take time to return. In fact that he does have p ositive flatus this is a good sign. We are still awaiting disposition.
[2018-03-31] MEDS: Docusate 100 MG CAP PO SCH ×2 (09:05→21:21)
[2018-03-31] MEDS: Cyclobenzaprine 10 MG TAB PO PRN ×2 (10:10→21:21)
[2018-03-31] MEDS: Acetaminophen/Codeine 30-300mg Tablet PO PRN ×3 (10:11→17:52)
[2018-03-31] MEDS ORDERED: Acetaminophen/Codeine 30-300mg Tablet PO PRN (20:17)
[2018-04-01] MEDS: Acetaminophen/Codeine 30-300mg Tablet PO PRN ×6 (00:34→19:57)
[2018-04-01] MEDS: Dexamethasone 4 mg/ml Vial SLOW IVP SCH ×3 (05:12→16:43)
[2018-04-01] MEDS: Sodium Chloride 0.9% 1,000 ML IV SCH ×2 (06:16→16:46)
[2018-04-01] MEDS ORDERED: Dexamethasone 4 mg/ml Vial SLOW IVP SCH (07:44)
--- NOTE | 2018-04-01 07:55 | PRG ---
DATE OF SERVICE: 04/01/2018 I saw Mr. Duvall in his hospital room this morning. He is 9 days out from anterior to posterior deco mpression with fusion for cervical spondylitic myelopathy with subacute progression to paraparesis an d left arm weakness. He is making progress with therapy. Arrangements are being made for a shower c hair and a walker at home. Grab bars will be installed by his family and a ramp will be built by a [employer]. These additions makes his home life safer, but I watched him walk today and his gait is not quite safe enough to be on his own. He does not have much strength in the left lower ex tremity and is off balance. He is going to continue his work with physical therapy here in the [facility] until his gait improves.
[2018-04-01] MEDS: Cyclobenzaprine 10 MG TAB PO PRN ×2 (08:16→16:48)
[2018-04-01] MEDS: Docusate 100 MG CAP PO SCH ×2 (08:16→19:52)
[2018-04-02] MEDS: Cyclobenzaprine 10 MG TAB PO PRN ×2 (00:45→20:16)
[2018-04-02] MEDS: Acetaminophen/Codeine 30-300mg Tablet PO PRN ×6 (00:45→23:29)
[2018-04-02] MEDS: Dexamethasone 4 mg/ml Vial SLOW IVP SCH ×4 (00:46→23:29)
[2018-04-02] MEDS: Sodium Chloride 0.9% 1,000 ML IV SCH ×3 (04:54→20:20)
[2018-04-02] MEDS: Docusate 100 MG CAP PO SCH ×2 (08:43→20:15)
--- NOTE | 2018-04-02 08:50 | PRG ---
DATE OF SERVICE: 04/02/2018 Mr. Duvall is a week and a half out from his anterior-posterior decompression and fusion for his cerv ical spondylitic myelopathy with subacute progression to severe disability. Mr. Duvall is recovering nicely from surgery. He is making a very predictable slow recovery from thi s. Still unsteady on his feet. His left hand is beginning to work better. His fingers extend fully , which is new and an improvement. He can push himself out of a chair and walk on stiff legs. He lo oks off balance to me. He is not sure his home is clean and safe for him yet. He will make sure nia t his family prepares the home for his discharge, if he is going to work on his walking today with ph ysical therapy.
[2018-04-03] MEDS: Dexamethasone 4 mg/ml Vial SLOW IVP SCH ×3 (08:52→23:31)
[2018-04-03] MEDS: Docusate 100 MG CAP PO SCH ×2 (08:53→19:58)
[2018-04-03] MEDS: Sodium Chloride 0.9% 1,000 ML IV SCH (09:09)
[2018-04-03] MEDS: Acetaminophen/Codeine 30-300mg Tablet PO PRN ×3 (10:03→23:32)
[2018-04-03] MEDS: Cyclobenzaprine 10 MG TAB PO PRN ×2 (11:59→20:00)
[2018-04-03] MEDS ORDERED: Chloraseptic Spray 180 ml Bottle PO PRN (14:58)
[2018-04-03] MEDS ORDERED: Dexamethasone 4 mg/ml Vial SLOW IVP SCH (16:00)
--- NOTE | 2018-04-03 16:15 | PDOC.FPRHP ---
- History of Present Illness Chief Complaint: lesions on hand, mouth and penis History of Present Illness: Patient presented two weeks ago with acute worsening of weakness in arms and an inability to walk. This was diagnosed as cervical spondylitic myleopathy and was surgically fixed. he has been recovering and getting rehab since. he has no prior medical problems. Patient had lesion on hand starting before he came, he burned a spot on his finger and now he has some irritation and mild pain in the skin there. He had some irriation coming from penis when his elizabeth catheter was removed and had some pus like discharge. now he has a rash and wetness around the shaft. it is itchy and painful. He also has a painful lesion in his mouth. it started a few days ago and it making eating difficult. he prefers cold foods because of the pain. - Allergies/Adverse Reactions Allergies Allergy/AdvReac Type Severity Reaction Status Date / Time No Known Allergies Allergy Unverified 03/21/18 19:11 - Home Medications Medication Instructions Recorded Confirmed Type Gabapentin 300 mg PO Q8HR 03/21/18 03/21/18 History Ibuprofen 200 mg PO PRN PRN 03/21/18 03/21/18 History Naproxen Sodium [Aleve] 220 mg PO PRN PRN 03/21/18 03/21/18 History Cyclobenzaprine [Flexeril] 10 mg PO TID PRN 03/22/18 03/22/18 History Acetaminophen With Codeine 1 - 2 each PO Q6HR PRN 04/03/18 04/03/18 History [Tylenol with Codeine #3 Tablet] Dexamethasone [Decadron] 1 mg PO DAILY 04/03/18 04/03/18 History Pantoprazole [Protonix] 40 mg PO DAILY 04/03/18 04/03/18 History tiZANidine HCl [Zanaflex] 4 mg PO TID PRN 04/03/18 04/03/18 History - History Date/Time: 04/06/182306 I personally evaluated the patient and discussed the management with Dr. Dozier on 04/03/2018 I agree with the History, Examination, Assessment and Plan documented above with any addition or exceptions noted below- Probable balanitis- start antifungals. Aphthaous ulcer- use topical analgesics. Burn on hamd- wound care consult. - Review of Systems General: reports: fatigue. denies: fever/chills, weight/appetite/sleep changes , night sweats Eyes: denies: eye pain, vision changes ENT: denies: nasal congestion, rhinorrhea Respiratory: reports: exercise intolerance. denies: cough, congestion, shortness of breath Cardiovascular: denies: chest pain, palpitation, edema, paroxysmal nocturnal dyspnea Gastrointestinal: denies: nausea, vomiting, diarrhea Genitourinary: denies: incontinence, dysuria, polyuria Skin: reports: rashes, lesions, itching. denies: jaundice Musculoskeletal: reports: pain. denies: tenderness, stiffness Neurological: denies: numbness, syncope Psychological: denies: anxiety, depression - Vital signs Selected Entries 04/03/18 11:52 Temperature 97.5 F L Pulse Rate 79 Blood Pressure 130/85 [Sitting] Respiratory 19 Rate O2 Sat by Pulse 100 Oximetry Oxygen Delivery Room Air Method - Physical Exam Constitutional: NAD, awake, alert and oriented, well developed -Constitutional: walking around room with walker. wearing a C collar. HEENT: normocephalic and atraumatic, PERRLA, grossly normal vision, TM's clear and intact -HEENT: small shallow ulcer seen on roof of mouth. no other notable mouth lesions. Neck: supple, FROM Chest: no-tender to palpation, no lesions Heart: RRR, normal S1/S2, no murmurs/rubs/gallops, pulses present, no edema Lungs: CTAB, no respiratory distress, good air movement Abdomen: soft, non-tender, bowel sounds present Musculoskeletal: normal structure, normal tone, ROM grossly normal -Neurological: bilateral strength in legs and arms demonstrated with walking with walker. CN exam normal grossly -Skin: R hand- hypopigmented, scarring tissue seen on 4th finger from recent burn. Penile shaft- area of skin folds with thick moisture. one 3x5 shallow ulcer seen on penis. Heme/Lymphatic: no unusual bruising or bleeding, no purpura Psychiatric: normal mood and affect, good judgment and insight, intact recent and remote memory FMR H&P: Results - Labs Result Diagrams: 04/04/18 07:06 04/04/18 07:06 FMR H&P: A/P - Problem List (1) Cervical spondylitic cord compression Current Visit: Yes Status: Acute Code(s): M47.12 - OTHER SPONDYLOSIS WITH MYELOPATHY, CERVICAL REGION (2) Candidiasis of penis Current Visit: Yes Status: Acute Code(s): B37.42 - CANDIDAL BALANITIS (3) Burn of finger Current Visit: Yes Status: Acute Code(s): T23.029A - BURN UNSP DEGREE OF UNSP SINGLE FINGER EXCEPT THUMB, INIT (4) Aphthous ulcer Current Visit: Yes Status: Acute (5) Penile ulcer Current Visit: Yes Status: Acute Code(s): N48.5 - ULCER OF PENIS (6) Constipation due to pain medication Current Visit: Yes Status: Acute Code(s): K59.03 - DRUG INDUCED CONSTIPATION - Plan # Cervical spondylitic myelopathy- Seems to be making good recovery after surgery. Pain management, cervical collar and rehab dispo per primary team. # apthous mouth ulcer- likely localized, but will rule out syphilis, HIV, Hep C. treat symptomatically with magic mouth wash # penile candidiasis and ulcer- moisture is consistent skin candidasis- will treat with nystatin powder. Will also rule out herpes with culture # R finger burn- consult wound care for dressing # penile discharge- seen after elizabeth removed. will test for GC chlamydia # consipation from pain medications- will add fleet enema today and start scheduled stimulant tomorrow Disposition/LOS: See primary team for managment of post operative course. Patient is suitable for outpatient treatment of all other issues. Attending Addendum - Attending Addendum Date/Time: 04/06/18 1844 I personally evaluated the patient and discussed the management with Dr. [] I agree with the History, Examination, Assessment and Plan documented above with any addition or exceptions noted below.
[2018-04-03] MEDS ORDERED: Nystatin Powder 15 GM BOT TOP PRN (16:56)
[2018-04-03] MEDS ORDERED: Aluminum & Magnesium Hydroxide 60 ML, Lidocaine 2% Viscous Solution 30 ML, diphenhydrAM... SSW PRN (16:58)
[2018-04-03] MEDS ORDERED: Fleet Enema 133 ML BOT PR SCH (17:15)
[2018-04-03 17:33] LABS: #Basophils 0.1 thou/uL (0.0-0.2); #Eosinphils 0.1 thou/uL (0.0-0.7); #Lymphocytes 2.3 thou/uL (1.20-3.40); #Monocytes 0.9 thou/uL (0.11-0.59); #Neutrophils 12.5 thou/uL (1.40-6.50); %Basophils 0.5 % (0.0-1.0); %Eosinophils 0.3 % (0.0-10.0); %Lymphocytes 14.4 % (21.0-51.0); %Monocytes 5.4 % (0.0-10.0); %Neutrophils 79.3 % (42.0-75.0); Hemoglobin 13.4 g/dL (14.0-18.0); Mean Corpuscular HGB CONC 34.6 g/dL (32.0-36.0); Mean Corpuscular Hemoglobin 32.9 pg (27.0-31.0); Mean Corpuscular Volume 94.9 fl (80.0-94.0); Mean Platelet Volume 7.5 fL (7.4-10.4); Platelet Count 261 thou/uL (130-400); RBC Distribution Width 11.6 % (11.5-14.5); Red Blood Cell (RBC) Count 4.09 mill/uL (4.70-6.10); White Blood Cell (WBC) Count 15.7 thou/uL (4.8-10.8)
--- NOTE | 2018-04-03 17:46 | PRG ---
DATE OF SERVICE: 04/03/2018 SUBJECTIVE: Mr. Puma Duvall is in hospital room today. He is actually more able to use his left h and and I have seen him previously. When I walked in the room and took off his ear phones with the l eft hand and held them there. His fingers are starting to extend fully. The hand has good motion. He is able to walk in the hallways today and made a lap with his walker. After two laps, however, he is very tired and had a rest for quite a bit. He still feels somewhat unsteady on his feet. Mr. Duvall has a number of questions that we answered for him today. Evidently, there is some lesion s in his oral mucosa in his right hand and his genital area that are painful and requested evaluation for those and we will make sure that happens. I suggested some Chloraseptic lozenges is to treat th e pain for now and I will defer to the medical team whether nystatin swish and spit or swish and swal low might be worthwhile. Mr. Duvall wonders about his dexamethasone and we were tapering that off. He wonders about his colla r, which can be removed for showers, but I like it on the rest of the time. He asked to stay at [facility] another day or two to work on his walking before and feels safe in his house. He will be seen over the weekend by Dr. Diaz, we will leave some ongoing prescriptions for him.
[2018-04-03 18:00] LABS: ALT (SGPT) 36 U/L (8-55); AST (SGOT) 16 U/L (5-34); Alkaline Phosphatase 242 U/L (40-150); Anion Gap 16 mmol/L (10-20); BUN (Urea Nitrogen) 19 mg/dL (8.9-20.6); Bilirubin, Total 0.2 mg/dL (0.2-1.2); Calc. Creatinine Clearance 186 mL/min (70-130); Calcium 9.3 mg/dL (7.8-10.44); Carbon Dioxide 23 mmol/L (22-29); Chloride 100 mmol/L (98-107); Estimated GFR-MDRD Greater than 90; Globulin 3.2 g/dL (2.4-3.5); Glucose 541 mg/dL (70-105); Potassium 5.1 mmol/L (3.5-5.1); Protein, Total 7.2 g/dL (6.0-8.3); Sodium 134 mmol/L (136-145)
[2018-04-03 18:21] LABS: Syphilis Antibody Nonreactive (Nonreactive); Syphilis Antibody Index 0.07 S/CO (<1.00 Non-Reactive)
[2018-04-03 18:24] LABS: HIV (1/2) Antibody/Antigen Non-Reactive (NonReactive); HIV 1/2 INDEX 0.08 S/CO (<1.00); Hep C IgG Ab Non-Reactive (NonReactive); Hep C Index 0.08 S/CO (0-0.79)
--- NOTE | 2018-04-04 06:34 | PDOC.FM ---
- Subjective Subjective: Puma Duvall seen at bedside this morning. He has no questions or concerns. Did well overnight. States he has no history or diagnosis of diabetes. States that he has been eating alot of sweets from the vending machine with his gf. Denies any fever, chills ,chest pain, dyspnea, n/v. Still complains of burning with urination since removal of the elizabeth. - Objective MAR Reviewed: Yes Vital Signs & Weight: Vital Signs (12 hours) Temp Pulse Resp BP BP Pulse Ox 04/04/18 04:00 98.0 F 82 16 128/77 98 04/04/18 00:56 97.3 F L 99 16 137/74 100 04/03/18 20:18 98.2 F 77 18 136/80 99 04/03/18 20:00 98.2 F 77 18 99 Weight Admit Weight 122.47 kg Weight 122.47 kg I&O: 04/02/18 04/03/18 04/04/18 06:59 06:59 06:59 Intake Total 1760 2520 3510 Balance 1760 2520 3510 Result Diagrams: 04/04/18 07:06 04/04/18 07:06 <Ranjeet Feliz - Last Filed: 04/04/18 08:48> - Objective Vital Signs & Weight: Vital Signs (12 hours) Temp Pulse Resp BP BP Pulse Ox 04/04/18 08:06 97.8 F 85 18 138/90 100 04/04/18 04:00 98.0 F 82 16 128/77 98 04/04/18 00:56 97.3 F L 99 16 137/74 100 Weight Admit Weight 270 lb Weight 270 lb I&O: 04/03/18 04/04/18 04/05/18 06:59 06:59 06:59 Intake Total 2520 3510 Balance 2520 3510 Result Diagrams: 04/04/18 07:06 04/04/18 07:06 <Shine Hanson - Last Filed: 04/04/18 10:57> Phys Exam - Physical Examination Constitutional: NAD HEENT: moist MMs, sclera anicteric Neck: no JVD, supple, full ROM Respiratory: no wheezing, no rales, no rhonchi, clear to auscultation bilateral Cardiovascular: RRR, no significant murmur Gastrointestinal: soft, non-tender, no distention Musculoskeletal: no edema, pulses present Neurological: non-focal, normal sensation, moves all 4 limbs Psychiatric: normal affect, A&O x 3 Skin: normal turgor, cap refill <2 seconds <Ranjeet Feliz - Last Filed: 04/04/18 08:48> Dx/Plan (1) Aphthous ulcer Status: Acute (2) Burn of finger Code(s): T23.029A - BURN UNSP DEGREE OF UNSP SINGLE FINGER EXCEPT THUMB, INIT Status: Acute (3) Candidiasis of penis Code(s): B37.42 - CANDIDAL BALANITIS Status: Acute (4) Cervical spondylitic cord compression Code(s): M47.12 - OTHER SPONDYLOSIS WITH MYELOPATHY, CERVICAL REGION Status: Acute (5) Constipation due to pain medication Code(s): K59.03 - DRUG INDUCED CONSTIPATION Status: Acute (6) Penile ulcer Code(s): N48.5 - ULCER OF PENIS Status: Acute (7) Hyperglycemia Code(s): R73.9 - HYPERGLYCEMIA, UNSPECIFIED Status: Acute - Plan Plan: (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 Pain management, cervical collar and rehab dispo per primary team. (2) Hyperglycemia: - No known diagnosis of diabetes - Patient has been receiving steroids - Blood sugar yesterday was 540 - Checking Hemoglobin A1c, accuchecks ACHS, Mod SSI (3) Elevated Alkaline Phosphatase: - Nonfasting Alk Phos was 242 - Rechecking fasting level today - checking GGT (3) Apthous mouth ulcer - likely localized - HIV, RPR, and Hep C negative - treat symptomatically with magic mouth wash (4) Penile candidiasis and ulcer - moisture is consistent skin candidasis - will treat with nystatin powder. - Will also rule out herpes with culture (5) R finger burn - consult wound care for dressing (6) Penile discharge - seen after elizabeth removed. - will test for GC chlamydia (7) Consipation from pain medications - fleet enema yesterday - on scheduled senna <Ranjeet Feliz - Last Filed: 04/04/18 08:48> Attending Addendum - Attending Addendum Date/Time: 04/04/18 8314 I personally evaluated the patient and discussed the management with Dr. Feliz I agree with the History, Examination, Assessment and Plan documented above with any addition or exceptions noted below. Puma Duvall is a 33 year old male neurosurgical patient, medical team was consulted for medical management of acute derm findings and chronic disease management. Patient's skin lesions are likely secondary to hospital stay along with chronically elevated blood sugars. He has a history of hyperglycemia that he states was diet controlled. He has been on steroids for the last week. Hemoglobin A1c is 8.1. Starting SSI, accuchecks ACHS, and metformin. Will continue to monitor sugars. Nystatin and oral diflucan for candidiasis. Will reevaluated tomorrow. <Shine Hanson - Last Filed: 04/04/18 10:57>
[2018-04-04] MEDS ORDERED: Dextrose 5% in Water 1,000 ML IV PRN (06:39)
[2018-04-04] MEDS ORDERED: Dextrose 50% Abboject 50 ML SYRINGE SLOW IVP PRN (06:39)
[2018-04-04] MEDS ORDERED: Insulin Regular 300 UNITS/3 ML VIAL SC PRN ×2 (06:39→19:15)
[2018-04-04 07:19] LABS: #Lymphocytes 3.5 thou/uL (1.20-3.40); #Monocytes 1.2 thou/uL (0.11-0.59); #Neutrophils 12.1 thou/uL (1.40-6.50); %Basophils 0.2 % (0.0-1.0); %Eosinophils 0.2 % (0.0-10.0); %Lymphocytes 20.7 % (21.0-51.0); %Monocytes 6.9 % (0.0-10.0); %Neutrophils 72.1 % (42.0-75.0); Hemoglobin 12.2 g/dL (14.0-18.0); Mean Corpuscular HGB CONC 33.2 g/dL (32.0-36.0); Mean Corpuscular Hemoglobin 31.9 pg (27.0-31.0); Mean Corpuscular Volume 96.2 fl (80.0-94.0); Mean Platelet Volume 7.5 fL (7.4-10.4); Platelet Count 244 thou/uL (130-400); RBC Distribution Width 11.6 % (11.5-14.5); Red Blood Cell (RBC) Count 3.82 mill/uL (4.70-6.10); White Blood Cell (WBC) Count 16.8 thou/uL (4.8-10.8)
[2018-04-04 07:26] LABS: Hemoglobin A1c 8.1 % (4.0-6.0)
[2018-04-04 07:43] LABS: ALT (SGPT) 34 U/L (8-55); AST (SGOT) 11 U/L (5-34); Albumin 3.6 g/dL (3.5-5.0); Alkaline Phosphatase 190 U/L (40-150); Anion Gap 12 mmol/L (10-20); BUN (Urea Nitrogen) 15 mg/dL (8.9-20.6); Bilirubin, Total 0.3 mg/dL (0.2-1.2); Calc. Creatinine Clearance 230 mL/min (70-130); Calcium 8.9 mg/dL (7.8-10.44); Carbon Dioxide 27 mmol/L (22-29); Chloride 100 mmol/L (98-107); Estimated GFR-MDRD Greater than 90; Gamma GT (GGT) 40 U/L (12-64); Globulin 2.4 g/dL (2.4-3.5); Glucose 399 mg/dL (70-105); Potassium 4.4 mmol/L (3.5-5.1); Sodium 135 mmol/L (136-145)
[2018-04-04] MEDS: Dexamethasone 4 mg/ml Vial SLOW IVP SCH ×2 (08:15→16:08)
[2018-04-04] MEDS: Senokot 8.6 MG TAB PO SCH (08:16)
[2018-04-04] MEDS: Acetaminophen/Codeine 30-300mg Tablet PO PRN ×3 (08:16→20:54)
[2018-04-04] MEDS: Docusate 100 MG CAP PO SCH ×2 (08:16→20:54)
[2018-04-04] MEDS: Insulin Regular 300 UNITS/3 ML VIAL SC PRN ×2 (11:02→17:50)
--- NOTE | 2018-04-04 14:42 | PRG ---
DATE OF SERVICE: 04/04/2018 I have been to Mr. Duvall's room a couple times, and he is in the shower when I have come. I will tr y and return later today to see how he is doing.
[2018-04-04] MEDS: metFORMIN 500 MG TAB PO SCH (17:50)
[2018-04-04] MEDS: Cyclobenzaprine 10 MG TAB PO PRN (20:54)
--- NOTE | 2018-04-04 21:07 | PRG-2 ---
DATE OF SERVICE: 04/04/2018 SUBJECTIVE: I attempted to see Mr. Duvall in his room today. However, he was in the shower and unab le to discuss his condition with me. I did discuss with the nurse that he has had no overnight event s and we are still waiting on disposition for discharge. The nursing staff understands to call the o ffice with any questions or concerns, otherwise we will follow up on the patient tomorrow.
[2018-04-05] MEDS: Acetaminophen/Codeine 30-300mg Tablet PO PRN ×4 (01:56→23:01)
[2018-04-05] MEDS: Dexamethasone 4 mg/ml Vial SLOW IVP SCH ×2 (01:56→10:05)
--- NOTE | 2018-04-05 06:24 | PDOC.FM ---
- Subjective Subjective: Puma Duvall is seen at bedside this morning. He states that he continues to have pain on the lesions on the shaft of his penis. He denies any fevers, penile discharge. Denies testicular pain. There were no acute events overnight. He has no questions. - Objective MAR Reviewed: Yes Vital Signs & Weight: Vital Signs (12 hours) Temp Pulse Resp BP Pulse Ox 04/05/18 03:29 98.1 F 94 16 129/78 94 L 04/04/18 20:00 98.1 F 94 16 94 L Weight Admit Weight 122.47 kg Weight 122.47 kg I&O: 04/03/18 04/04/18 04/05/18 06:59 06:59 06:59 Intake Total 2520 3510 1400 Balance 2520 3510 1400 Result Diagrams: 04/04/18 07:06 04/04/18 07:06 <Ranjeet Feliz - Last Filed: 04/05/18 07:54> - Objective Vital Signs & Weight: Vital Signs (12 hours) Temp Pulse Resp BP Pulse Ox 04/05/18 07:30 98.1 F 86 18 125/83 99 04/05/18 03:29 98.1 F 94 16 129/78 94 L Weight Admit Weight 270 lb Weight 270 lb I&O: 04/04/18 04/05/18 04/06/18 06:59 06:59 06:59 Intake Total 3510 1400 1010 Balance 3510 1400 1010 Result Diagrams: 04/04/18 07:06 04/04/18 07:06 <Shine Hanson - Last Filed: 04/05/18 10:17> Phys Exam - Physical Examination Constitutional: NAD HEENT: moist MMs, sclera anicteric Neck: no JVD, supple, full ROM Respiratory: no wheezing, no rales, no rhonchi, clear to auscultation bilateral Cardiovascular: RRR Gastrointestinal: soft, non-tender, no distention Musculoskeletal: no edema, pulses present Neurological: non-focal, normal sensation, moves all 4 limbs Psychiatric: normal affect, A&O x 3 Deviation from normal: shallow ulcerated appearing lesions on shaft of penis under foreskin <Ranjeet Feliz - Last Filed: 04/05/18 07:54> Dx/Plan (1) Aphthous ulcer Status: Acute (2) Burn of finger Code(s): T23.029A - BURN UNSP DEGREE OF UNSP SINGLE FINGER EXCEPT THUMB, INIT Status: Acute (3) Candidiasis of penis Code(s): B37.42 - CANDIDAL BALANITIS Status: Acute (4) Cervical spondylitic cord compression Code(s): M47.12 - OTHER SPONDYLOSIS WITH MYELOPATHY, CERVICAL REGION Status: Acute (5) Constipation due to pain medication Code(s): K59.03 - DRUG INDUCED CONSTIPATION Status: Acute (6) Penile ulcer Code(s): N48.5 - ULCER OF PENIS Status: Acute (7) Hyperglycemia Code(s): R73.9 - HYPERGLYCEMIA, UNSPECIFIED Status: Acute - Plan Plan: (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 Cont pain management, cervical collar and rehab dispo per primary team. (2) Hyperglycemia: - No known diagnosis of diabetes - Patient has been receiving steroids - Blood sugar yesterday was 540 - Accuchecks ACHS, Mod SSI, accuchecks have been ranging 399-445, required 12 U of SSI yesterday - Hemoglobin A1c was 8.1 (3) Elevated Alkaline Phosphatase: - Fasting was 190 - GGT normal - likely elevated from surgery (3) Apthous mouth ulcer - likely localized - HIV, RPR, and Hep C negative - treat symptomatically with magic mouth wash (4) Penile candidiasis and ulcer - moisture is consistent skin candidasis - will treat with nystatin powder. - Will also rule out herpes with culture - Add 3 day course of oral diflucan (5) R finger burn - consult wound care for dressing (6) Penile discharge - seen after elizabeth removed. - will test for GC chlamydia - patient states discharged has resolved (7) Consipation from pain medications - fleet enema yesterday - on scheduled senna <Ranjeet Feliz - Last Filed: 04/05/18 07:54> Attending Addendum - Attending Addendum Date/Time: 04/05/18 1014 I personally evaluated the patient and discussed the management with Dr. Feliz I agree with the History, Examination, Assessment and Plan documented above with any addition or exceptions noted below. Puma Duvall is a 33 year old male, medical team consulted for management of penile lesions and diabetes management. Penile lesions are likely penile candidiasis and we are treating with nystatin and diflucan. Patient's diabetes in uncontrolled at this time. Will increase sliding scale insulin and continue metformin. Will continue to monitor with accuchecks. Lesions will likely heal quicker with better blood sugar control. <Shine Hanson - Last Filed: 04/05/18 10:17>
[2018-04-05] MEDS: metFORMIN 500 MG TAB PO SCH ×2 (10:05→18:28)
[2018-04-05] MEDS: Fluconazole 100 MG TAB PO SCH (10:06)
[2018-04-05] MEDS: Docusate 100 MG CAP PO SCH ×2 (10:06→23:03)
[2018-04-05] MEDS: Cyclobenzaprine 10 MG TAB PO PRN ×2 (10:13→18:28)
--- NOTE | 2018-04-05 11:23 | PRG ---
DATE OF SERVICE: 04/05/2018 SUBJECTIVE: Mr. Duvall is hospital day #15, having undergone ACDF, anterior and posterior cervical f ixation with Dr. Marcos. The patient states he is doing well. He has had some slight amount of t ingling returned into the hands, but overall states that he is slowly but surely getting better. He continues with baseline left leg greater than left arm weakness. He has been able to walk. He is re sting comfortably in chair with a well-fitting [place] collar. His main issue now is disposition and w lillie are working on this. Please call with any changes in the patient's neurologic status. This is Bennett Damon PA-C dictating for Dr. Kimani Diaz.
[2018-04-05] MEDS: Insulin Regular 300 UNITS/3 ML VIAL SC PRN ×2 (13:19→18:30)
[2018-04-05] MEDS: Senokot 8.6 MG TAB PO SCH (13:34)
[2018-04-05 19:56] LABS: Chlamydia by PCR Not Detected (NotDetected); GC by PCR Not Detected (NotDetected)
--- NOTE | 2018-04-06 07:16 | PRG ---
DATE OF SERVICE: 04/06/2018 Mr. Puma Duvall had a reasonable weekend and we appreciate the help from our Family Practice rober moreira for his hand and penile lesions. His vital signs have been stable. He is continuing with his phys ical therapy in the hospital. He is unsure of the progress of improvements at home to make it safe f or him to discharge. He is unaware of any facility that will take him for his inpatient therapy. On examination, Mr. Duvall is stable from Friday. His hand and legs are definitely better than they were before surgery and is making some progress with therapy. He is now 2 weeks and 2 days out from anterior and posterior decompression with fusion for cervical m yelopathy. The coming week would be reasonable to consider a suture removal. We will get a venogram of the lower extremities and sure he has not developed DVT. I will continue with physical therapy i the hospital and occupational therapy. Our colleagues in Family Practice will continue to help wit h managing the lesions on the hand and genital area.
[2018-04-06] MEDS: Docusate 100 MG CAP PO SCH ×2 (09:00→21:46)
[2018-04-06] MEDS: metFORMIN 500 MG TAB PO SCH ×2 (09:00→17:39)
[2018-04-06] MEDS: Senokot 8.6 MG TAB PO SCH (09:01)
[2018-04-06] MEDS: Cyclobenzaprine 10 MG TAB PO PRN (09:01)
[2018-04-06] MEDS: Fluconazole 100 MG TAB PO SCH (09:01)
[2018-04-06] MEDS: Acetaminophen/Codeine 30-300mg Tablet PO PRN ×3 (09:01→21:43)
--- NOTE | 2018-04-06 11:08 | PDOC.FM ---
- Subjective Subjective: Patient feeling okay today. Mild pain at site of sutures but tolerable. Movement improving in RUE/RLE. Still c/o penile irritation/pain. Has not received nystatin powder. - Objective MAR Reviewed: Yes Vital Signs & Weight: Vital Signs (12 hours) Temp Pulse Resp BP BP Pulse Ox 04/06/18 08:10 97.9 F 90 18 96 04/06/18 07:30 97.6 F 82 14 123/81 96 04/06/18 03:15 97.9 F 90 18 130/84 99 04/06/18 00:00 98.1 F 97 18 135/88 97 Weight Admit Weight 122.47 kg Weight 122.47 kg I&O: 04/05/18 04/06/18 04/07/18 06:59 06:59 06:59 Intake Total 1400 2950 Balance 1400 2950 Result Diagrams: 04/04/18 07:06 04/04/18 07:06 <Triny Bellamy - Last Filed: 04/06/18 11:06> - Objective Vital Signs & Weight: Vital Signs (12 hours) Temp Pulse Resp BP BP Pulse Ox 04/06/18 19:56 98.3 F 95 16 144/78 H 100 04/06/18 16:08 98.2 F 91 16 126/84 99 04/06/18 11:23 98.2 F 96 16 125/84 100 Weight Admit Weight 122.47 kg Weight 122.47 kg I&O: 04/05/18 04/06/18 04/07/18 06:59 06:59 06:59 Intake Total 1400 2950 Balance 1400 2950 Result Diagrams: 04/04/18 07:06 04/04/18 07:06 <Jo Ann Gomez - Last Filed: 04/06/18 23:04> Phys Exam - Physical Examination Constitutional: NAD Respiratory: no wheezing, no rales, no rhonchi, clear to auscultation bilateral Cardiovascular: RRR, no significant murmur Gastrointestinal: soft, non-tender Musculoskeletal: no edema Neurological: moves all 4 limbs 3/5 RUE/RLE strength, 5/5 LUE/LLE strength Psychiatric: normal affect, A&O x 3 <Triny Bellamy - Last Filed: 04/06/18 11:06> Dx/Plan (1) Diabetes mellitus Code(s): E11.9 - TYPE 2 DIABETES MELLITUS WITHOUT COMPLICATIONS Status: Chronic QualifierTitle: Diabetes mellitus type: type 2 Diabetes mellitus nursing home insulin use: without emt intermediate use Diabetes mellitus complication status : without complication Qualified Code(s): E11.9 - Type 2 diabetes mellitus without complications (2) Aphthous ulcer Status: Acute (3) Burn of finger Code(s): T23.029A - BURN UNSP DEGREE OF UNSP SINGLE FINGER EXCEPT THUMB, INIT Status: Acute (4) Candidiasis of penis Code(s): B37.42 - CANDIDAL BALANITIS Status: Acute (5) Cervical spondylitic cord compression Code(s): M47.12 - OTHER SPONDYLOSIS WITH MYELOPATHY, CERVICAL REGION Status: Acute (6) Constipation due to pain medication Code(s): K59.03 - DRUG INDUCED CONSTIPATION Status: Acute - Plan Plan: (1) Cervical spondylitic myelopathy -Pain management, cervical collar and rehab dispo per primary team. (2) Type 2 DM: - No known diagnosis of diabetes however hgb A1C is 8.1 -may be secondary to chronic steroid use. Has been started on metformin and titrated to high dose which he is tolerating. - cont accuchecks ACHS, Mod SSI -will need outpatient follow up and cont mgmt. (3) Elevated Alkaline Phosphatase: - Nonfasting Alk Phos was 242 - downtrending now (3) Apthous mouth ulcer - HIV, RPR, and Hep C negative - treat symptomatically with magic mouth wash, now scheduled (4) Penile candidiasis and ulcer - moisture is consistent skin candidasis - will treat with nystatin cream scheduled - pending herpes cx, GC/C negative (5) R finger burn -wound care (7) Consipation from pain medications - scheduled senna <Triny Bellamy - Last Filed: 04/06/18 11:06> Attending Addendum - Attending Addendum Date/Time: 04/06/18 6413 I personally evaluated the patient and discussed the management with Dr. Bellamy. I agree with the History, Examination, Assessment and Plan documented above with any addition or exceptions noted below- Patient without complaints. Walking with PT using walker. Afebrile VSS. A/P: 1) Balanitis- continue diflucan and add antifungal cream. 2) aphthous ulcer- continue magic mouthwash. 3) Newly diagnosed DM- continue metformin and SSI. Continue to monitor accuchecks. <Jo Ann Gomez - Last Filed: 04/06/18 23:04>
[2018-04-06] MEDS ORDERED: Nystatin Cream 30 GM TUBE TOP SCH (11:15)
[2018-04-06] MEDS ORDERED: Aluminum & Magnesium Hydroxide 60 ML, diphenhydrAMINE 150 MG, Lidocaine 2% Viscous Solu... SSW SCH ×2 (11:15→21:00)
[2018-04-06] MEDS: Nystatin Cream 30 GM TUBE TOP SCH ×2 (15:01→21:43)
--- NOTE | 2018-04-06 15:29 | ULT ---
BILATERAL LOWER EXTREMITY VENOUS ULTRASOUND WITH DOPPLER: Date: 04/06/18 COMPARISON: 03/30/17. HISTORY: Spinal cord injury. Leg weakness. TECHNIQUE: Herrmann scale, color flow, Doppler imaging, and spectral waveform analysis performed of the left and rig ht lower extremity deep venous system. FINDINGS: Bilaterally, there is compressibility, presence of flow, and augmentation in the common femoral, femo ral vein, and popliteal vein. There is flow in bilateral greater saphenous veins, profunda veins, pos terior tibial veins, and anterior tibial veins. IMPRESSION: No evidence of thrombus in the left or right lower extremity deep venous system. POS: [facility]
[2018-04-06] MEDS: Aluminum & Magnesium Hydroxide 60 ML, Lidocaine 2% Viscous Solution 30 ML, diphenhydrAM... SSW SCH (21:43)
[2018-04-07] MEDS: Acetaminophen/Codeine 30-300mg Tablet PO PRN ×3 (01:50→22:46)
--- NOTE | 2018-04-07 07:08 | PRG ---
DATE OF SERVICE: 04/07/2018 Mr. Duvlal tells me his father has not put in the grab bars in his bathroom at home yet. He is not s ure if the place is ready for him, but he is going to check with his mother today. He was ambulatory yesterday. He had an ultrasound of lower extremities. On examination, Mr. Duvall has gradually increasing neurological function. He tells me he can stand from a seated position using the arm rest and a walker. He will need help getting out of bed in the morning at home. He is not sure who would be there to help him, but he thinks his mother and sister will be able to do so. We will get to neuro therapy on Mr. Duvall today. Once it is safe for him to be discharged we will l et him go home. He would benefit from inpatient rehabilitation, but evidently that is not an option for him given his insurance issues.
[2018-04-07] MEDS: Docusate 100 MG CAP PO SCH ×2 (08:23→22:36)
[2018-04-07] MEDS: Fluconazole 100 MG TAB PO SCH (08:23)
[2018-04-07] MEDS: metFORMIN 500 MG TAB PO SCH ×2 (08:23→16:39)
[2018-04-07] MEDS: Senokot 8.6 MG TAB PO SCH (08:24)
[2018-04-07] MEDS: Nystatin Cream 30 GM TUBE TOP SCH ×3 (08:24→22:35)
--- NOTE | 2018-04-07 09:03 | PDOC.FM ---
- Subjective Subjective: Patient sitting at bedside in chair this morning. He used the nystatin cream yesterday and states it has helped with the pain. He had declined insulin last night bc the insulin is making his body sore all over. He thinks he has been sore since getting insulin. He has no other complaints. - Objective MAR Reviewed: Yes Vital Signs & Weight: Vital Signs (12 hours) Temp Pulse Resp BP BP Pulse Ox 04/07/18 08:35 96.9 F L 104 H 16 118/77 94 L 04/07/18 07:00 98.2 F 96 18 04/07/18 03:05 98.2 F 96 18 117/76 100 04/07/18 00:00 98.2 F 94 16 122/82 98 04/06/18 23:49 98.2 F 94 16 122/82 98 Weight Admit Weight 122.47 kg Weight 122.47 kg I&O: 04/06/18 04/07/18 04/08/18 06:59 06:59 06:59 Intake Total 2950 240 Balance 2950 240 Result Diagrams: 04/04/18 07:06 04/04/18 07:06 <Triny Bellamy - Last Filed: 04/07/18 09:10> - Objective Vital Signs & Weight: Vital Signs (12 hours) Temp Pulse Resp BP BP Pulse Ox 04/07/18 11:44 96.6 F L 107 H 16 148/86 H 94 L 04/07/18 08:35 96.9 F L 104 H 16 118/77 94 L 04/07/18 07:00 98.2 F 96 18 04/07/18 03:05 98.2 F 96 18 117/76 100 Weight Admit Weight 122.47 kg Weight 122.47 kg I&O: 04/06/18 04/07/18 04/08/18 06:59 06:59 06:59 Intake Total 2950 240 Balance 2950 240 Result Diagrams: 04/04/18 07:06 04/04/18 07:06 <Jo Ann Gomez - Last Filed: 04/07/18 12:06> Phys Exam - Physical Examination Constitutional: NAD HEENT: moist MMs Respiratory: no wheezing, no rales, no rhonchi, clear to auscultation bilateral Cardiovascular: RRR, no significant murmur Gastrointestinal: soft, non-tender, no distention Musculoskeletal: no edema Neurological: non-focal, moves all 4 limbs Psychiatric: A&O x 3 <Triny Bellamy - Last Filed: 04/07/18 09:10> Dx/Plan (1) Diabetes mellitus Code(s): E11.9 - TYPE 2 DIABETES MELLITUS WITHOUT COMPLICATIONS Status: Chronic QualifierTitle: Diabetes mellitus type: type 2 Diabetes mellitus termite helper insulin use: without termite helper use Diabetes mellitus complication status : without complication Qualified Code(s): E11.9 - Type 2 diabetes mellitus without complications (2) Aphthous ulcer Status: Acute (3) Burn of finger Code(s): T23.029A - BURN UNSP DEGREE OF UNSP SINGLE FINGER EXCEPT THUMB, INIT Status: Acute (4) Candidiasis of penis Code(s): B37.42 - CANDIDAL BALANITIS Status: Acute (5) Cervical spondylitic cord compression Code(s): M47.12 - OTHER SPONDYLOSIS WITH MYELOPATHY, CERVICAL REGION Status: Acute (6) Constipation due to pain medication Code(s): K59.03 - DRUG INDUCED CONSTIPATION Status: Acute - Plan Plan: (1) Cervical spondylitic myelopathy -Pain management, cervical collar and rehab dispo per primary team. (2) Type 2 DM: - new diagnosis with hgb A1C of 8.1 -may be secondary to chronic steroid use. Has been started on metformin and titrated to high dose which he is tolerating. - cont accuchecks ACHS, Mod SSI- he is declining short acting insulin but with persistently elevated BG, may consider a long acting insulin -will need outpatient follow up and cont mgmt. (3) Elevated Alkaline Phosphatase: - Nonfasting Alk Phos was 242 - downtrending now (3) Apthous mouth ulcer - HIV, RPR, and Hep C negative - treat symptomatically with magic mouth wash, now scheduled - expect resolution within 7-10 days (4) Penile candidiasis and ulcer - will treat with nystatin cream scheduled - pending herpes cx, GC/C negative (5) R finger burn -wound care (7) Constipation from pain medications - scheduled senna <Triny Bellamy - Last Filed: 04/07/18 09:10> (1) Cervical spondylitic cord compression Code(s): M47.12 - OTHER SPONDYLOSIS WITH MYELOPATHY, CERVICAL REGION Status: Acute (2) Candidiasis of penis Code(s): B37.42 - CANDIDAL BALANITIS Status: Acute (3) Burn of finger Code(s): T23.029A - BURN UNSP DEGREE OF UNSP SINGLE FINGER EXCEPT THUMB, INIT Status: Acute (4) Aphthous ulcer Status: Acute (5) Penile ulcer Code(s): N48.5 - ULCER OF PENIS Status: Acute (6) Constipation due to pain medication Code(s): K59.03 - DRUG INDUCED CONSTIPATION Status: Acute <Jo Ann Gomez - Last Filed: 04/07/18 12:06> Attending Addendum - Attending Addendum Date/Time: 04/07/18 1203 I personally evaluated the patient and discussed the management with Dr. Bellamy I agree with the History, Examination, Assessment and Plan documented above with any addition or exceptions noted below- Patient without complaints. Ambulating with PT. Afebrile VSS. A/P: 1) Type 2 DM- BG elevated; will add additional oral agent. Discussed need for BG control to help with healing. Will have gang plank workman see patient regarding diet. 2) Balanitis- continue antifungal cream. 3) S/p multilevel laminectomy- continue PT; plans as per neurosurgery <Jo Ann Gomez - Last Filed: 04/07/18 12:06>
[2018-04-07] MEDS: Aluminum & Magnesium Hydroxide 60 ML, Lidocaine 2% Viscous Solution 30 ML, diphenhydrAM... SSW SCH (10:36)
[2018-04-07] MEDS ORDERED: glipiZIDE 5 MG TAB PO SCH (12:00)
[2018-04-07 17:18] LABS: #Eosinphils 0.1 thou/uL (0.0-0.7); #Lymphocytes 2.9 thou/uL (1.20-3.40); #Monocytes 0.7 thou/uL (0.11-0.59); #Neutrophils 4.9 thou/uL (1.40-6.50); %Basophils 0.5 % (0.0-1.0); %Eosinophils 0.9 % (0.0-10.0); %Lymphocytes 33.3 % (21.0-51.0); %Monocytes 7.8 % (0.0-10.0); %Neutrophils 57.5 % (42.0-75.0); Hemoglobin 13.5 g/dL (14.0-18.0); Mean Corpuscular HGB CONC 33.1 g/dL (32.0-36.0); Mean Corpuscular Hemoglobin 31.5 pg (27.0-31.0); Mean Corpuscular Volume 95.1 fl (80.0-94.0); Mean Platelet Volume 7.5 fL (7.4-10.4); Platelet Count 249 thou/uL (130-400); RBC Distribution Width 11.7 % (11.5-14.5); White Blood Cell (WBC) Count 8.6 thou/uL (4.8-10.8)
[2018-04-07] MEDS: Cyclobenzaprine 10 MG TAB PO PRN (22:48)
--- NOTE | 2018-04-08 07:15 | PRG ---
DATE OF SERVICE: 04/08/2018 Mr. Duvall had his family install grab bars at his home yesterday. This makes his bathroom use safe r there. His activities of daily living will be difficult, but I think it is likely he can manage on his own and he does have help from family members when he does go home. He would benefit greatly fr inpatient rehabilitation, but his lack of insurance coverage precludes that. He tells me he wants to go home tomorrow. Will make arrangements for discharge tomorrow. He is off his Decadron and torres s not need a Decadron taper prescription.
[2018-04-08] MEDS: Aluminum & Magnesium Hydroxide 60 ML, Lidocaine 2% Viscous Solution 30 ML, diphenhydrAM... SSW SCH ×3 (07:38→22:33)
[2018-04-08] MEDS: glipiZIDE 5 MG TAB PO SCH (08:23)
[2018-04-08] MEDS: metFORMIN 500 MG TAB PO SCH ×2 (08:24→17:56)
[2018-04-08] MEDS: Fluconazole 100 MG TAB PO SCH (08:24)
[2018-04-08] MEDS: Docusate 100 MG CAP PO SCH ×2 (08:24→22:33)
[2018-04-08] MEDS: Nystatin Cream 30 GM TUBE TOP SCH ×3 (08:24→22:33)
[2018-04-08] MEDS: Senokot 8.6 MG TAB PO SCH (08:25)
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
[2018-04-08 10:18] LABS: ALT (SGPT) 127 U/L (8-55); AST (SGOT) 45 U/L (5-34); Albumin 3.7 g/dL (3.5-5.0); Alkaline Phosphatase 83 U/L (40-150); Anion Gap 13 mmol/L (10-20); BUN (Urea Nitrogen) 10 mg/dL (8.9-20.6); Bilirubin, Total 0.4 mg/dL (0.2-1.2); Calc. Creatinine Clearance 252 mL/min (70-130); Calcium 9.1 mg/dL (7.8-10.44); Carbon Dioxide 24 mmol/L (22-29); Chloride 102 mmol/L (98-107); Estimated GFR-MDRD Greater than 90; Globulin 2.9 g/dL (2.4-3.5); Glucose 194 mg/dL (70-105); Potassium 4.3 mmol/L (3.5-5.1); Protein, Total 6.6 g/dL (6.0-8.3); Sodium 135 mmol/L (136-145)
--- NOTE | 2018-04-08 14:38 | RAD ---
AP ABDOMINAL RADIOGRAPH: Date: 04/08/18 HISTORY: Left lower quadrant abdominal pain, constipation. FINDINGS: There is a moderate amount of retained fecal material seen throughout the colon. Bowel gas pattern is otherwise nonspecific. There is mild deformity of the femoral heads bilaterally, which may be develo pmental in origin. No suspicious calcifications are seen. IMPRESSION: Constipation. Bowel gas pattern is otherwise nonspecific. POS: [facility]
[2018-04-08] MEDS: Cyclobenzaprine 10 MG TAB PO PRN (22:32)
[2018-04-08] MEDS: Acetaminophen/Codeine 30-300mg Tablet PO PRN (22:32)
[2018-04-08] MEDS: Bisacodyl 10 MG SUPP PR PRN (23:53)
[2018-04-09] MEDS: glipiZIDE 5 MG TAB PO SCH (06:27)
--- NOTE | 2018-04-09 07:20 | PRG ---
DATE OF SERVICE: 04/09/2018 NEUROSURGERY PROGRESS NOTE I saw Mr. Puma souza in his hospital room this morning. He is 2-1/2 weeks out from anterior to po sterior decompression fusion for subacute progressive cervical spondylitic myelopathy. Mr. Souza co ntinues to work with physical therapy. He is feeling a little bit better than yesterday. Yesterday's events included a call from our medical insurance verifier group within the hospital to inqui re about his length of stay. Therefore, today we were making a discharge home. No inpatient rehabilitation facility has accepted Mr. Souza. He is ambulatory with assistance in use of walker. Grab bars have been installed in his house. His family will assist with his care. We will ask our physical and occupational therapists to give him a list of home going instructions as far as exercises to continue to do. We went over activity restrictions, wound care and followup arrangements.
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
[2018-04-09] MEDS: Acetaminophen/Codeine 30-300mg Tablet PO PRN (10:15)
[2018-04-09] MEDS: Docusate 100 MG CAP PO SCH (10:17)
[2018-04-09] MEDS: metFORMIN 500 MG TAB PO SCH (10:17)
[2018-04-09] MEDS: Senokot 8.6 MG TAB PO SCH (10:17)
[2018-04-09] MEDS: Aluminum & Magnesium Hydroxide 60 ML, Lidocaine 2% Viscous Solution 30 ML, diphenhydrAM... SSW SCH (10:18)
[2018-04-09] MEDS: Nystatin Cream 30 GM TUBE TOP SCH ×2 (10:18→21:59)
[2018-04-09 12:01] VITALS: BP 125/90; TEMP 98.3
== END 2018-04-09 15:20 | disposition home or self-care (01) | DRG 471 ==
LOC: ERS 13:20 → SJJU 18:45
PROVIDERS: ADMIT Neurological Surgery; ATTEND Neurological Surgery
PROC: 0RG10A0 Fusion of Cervical Vertebral Joint with Interbody Fusion Device, Anterior Approach, Anterior Column, Open Approach (ICD-10-PCS; principal; 2018-03-22)
PROC: 00NW0ZZ Release Cervical Spinal Cord, Open Approach (ICD-10-PCS; 2018-03-22)
PROC: 0RB30ZZ Excision of Cervical Vertebral Disc, Open Approach (ICD-10-PCS; 2018-03-22)
DX: M47.12 Other spondylosis with myelopathy, cervical region (principal); G82.50 Quadriplegia, unspecified; M50.021 Cervical disc disorder at C4-C5 level with myelopathy; B37.42 Candidal balanitis; K12.0 Recurrent oral aphthae; N48.5 Ulcer of penis; F17.210 Nicotine dependence, cigarettes, uncomplicated; K59.03 Drug induced constipation; E11.65 Type 2 diabetes mellitus with hyperglycemia; T40.2X5A Adverse effect of other opioids, initial encounter; T23.021A Burn of unspecified degree of single right finger (nail) except thumb, initial encounter; X58.XXXA Exposure to other specified factors, initial encounter; Z79.899 Other long term (current) drug therapy
CPT/HCPCS: 36415; 36416; 72040; 72125; 72141; 72146; 72148; 74018; 76001; 80053; 82977; 83036; 85025; 85610; 85730; 86780; 86803; 86850; 86900; 86901; 87255; 87389; 87491; 87591; 93970; 96374; A4216; C1713; C1776; G8978-GP-CL; G8978-GP-CM; G8979-GP-CJ; G8987-GO-CM; G8988-GO-CJ; J0131; J0360; J0690; J1100; J1170; J1815; J2001; J2270; J2704; J3010; J3370; J3490; Q0162

== ENCOUNTER 2018-05-29 14:47 | Outpatient (CLI) | payer OTHER ==
--- NOTE | 2018-05-29 15:39 | RAD ---
CERVICAL SPINE: 05/29/18 Four views. INDICATION: Followup surgery. Cervical pain. COMPARISON: 03/23/18. FINDINGS/IMPRESSION: Anterior plate and screws again noted at C4-5 with interbody implant at this level. Posterior alignme nt is maintained. There has been no change in position of the hardware or alignment when compared to prior exam. POS: [facility]
== END 2018-05-29 14:48 | disposition home or self-care (01) ==
LOC: TBSIIMAG 14:47
PROVIDERS: ATTEND Neurological Surgery
DX: S14.109A Unspecified injury at unspecified level of cervical spinal cord, initial encounter (principal); Z98.890 Other specified postprocedural states
CPT/HCPCS: 72040

== ENCOUNTER 2018-06-12 13:36 | Outpatient (CLI) | payer OTHER ==
--- NOTE | 2018-06-12 14:31 | ULT ---
BILATERAL LOWER EXTREMITY VENOUS DUPLEX ULTRASOUND: HISTORY: Bilateral leg pain and edema. TECHNIQUE: Herrmann scale ultrasound with color flow and spectral Doppler imaging of the deep venous system of the s ystems of the lower extremities is performed bilaterally. FINDINGS: There is good flow, compression, and augmentation noted in the common femoral, femoral, deep femoral, popliteal, posterior tibial, and greater saphenous veins on either side. IMPRESSION: No evidence of deep vein thrombosis in either lower extremity. POS: [facility]
== END 2018-06-12 13:37 | disposition home or self-care (01) ==
LOC: ULT 13:36
PROVIDERS: ATTEND Neurological Surgery
DX: M79.89 Other specified soft tissue disorders (principal)
CPT/HCPCS: 93970

== ENCOUNTER 2018-10-08 12:07 | Outpatient (CLI) | payer MEDICAID ==
--- NOTE | 2018-10-08 14:32 | ULT ---
LEFT LOWER EXTREMITY VENOUS DOPPLER: History: Arm pain and edema. Comparison: None. Technique: Real-time grayscale and color spectral analysis of the left upper extremity venous system was perform ed. FINDINGS: The internal jugular, subclavian, and axillary veins as well as the basilic, cephalic, ulnar, and bra nchial veins were imaged. There is normal flow, augmentation, and compression. IMPRESSION: No deep venous thrombosis. POS: [facility]
== END 2018-10-08 12:08 | disposition home or self-care (01) ==
LOC: BICULT 12:07
PROVIDERS: ATTEND Family Medicine
DX: M79.602 Pain in left arm (principal); M79.89 Other specified soft tissue disorders

== ENCOUNTER 2018-10-30 13:13 | Outpatient (CLI) | payer MEDICAID ==
--- NOTE | 2018-10-30 14:05 | RAD ---
RIGHT KNEE 4 VIEWS: Date: 10/30/18 HISTORY: Right knee pain. FINDINGS: No fracture, dislocation, or bony destruction is seen. No joint effusion is identified. IMPRESSION: No acute process. POS: [facility]
--- NOTE | 2018-10-30 14:39 | ULT ---
THYROID ULTRASOUND: 10/30/2018 HISTORY: Thyromegaly. COMPARISON: None. TECHNIQUE: Multiplanar person-scale sonographic imaging of the thyroid gland obtained. FINDINGS: The thyroid isthmus measures 4 mm in AP dimension. The right lobe measures 2.1 x 6.2 x 1.5 cm. The left lobe measures 2.8 x 6.1 x 1.8 cm. There is a t iny thyroid cyst, measuring 5 x 3 mm, within the inferior left lobe. There is a similar 3 mm cyst in the mid right lobe. No dominant thyroid nodule. IMPRESSION: No acute findings. POS: [facility]
== END 2018-10-30 13:14 | disposition home or self-care (01) ==
LOC: BICULT 13:13
PROVIDERS: ATTEND Family Medicine
DX: E01.0 Iodine-deficiency related diffuse (endemic) goiter (principal); M25.561 Pain in right knee
CPT/HCPCS: 76536

== ENCOUNTER 2021-09-18 17:37 | Emergency (ER) | payer OTHER ==
[2021-09-18] MEDS ORDERED: Ketorolac Tromethamine 30 MG/ML VIAL ONE (18:48)
[2021-09-18] MEDS ORDERED: Acetaminophen 500 MG TAB ONE (18:48)
== END 2021-09-18 20:07 | disposition home or self-care (01) ==
LOC: ERS 17:37
DX: M62.838 Other muscle spasm (principal); F17.210 Nicotine dependence, cigarettes, uncomplicated; V49.60XA Unspecified car occupant injured in collision with unspecified motor vehicles in traffic accident, initial encounter
CPT/HCPCS: 72125; 72131; 96372; J1885

== ENCOUNTER 2022-12-05 10:02 | Emergency (ER) | payer OTHER ==
[2022-12-05 10:59] LABS: #Basophils 0.1 thou/uL (0.0-0.2); #Lymphocytes 2.6 thou/uL (1.20-3.40); #Monocytes 0.5 thou/uL (0.11-0.59); #Neutrophils 6.6 thou/uL (1.40-6.50); %Basophils 0.7 % (0.0-1.0); %Eosinophils 0.3 % (0.0-10.0); %Lymphocytes 26.3 % (21.0-51.0); %Monocytes 5.3 % (0.0-10.0); %Neutrophils 67.3 % (42.0-75.0); Hemoglobin 15.7 g/dL (14.0-18.0); Mean Corpuscular HGB CONC 33.6 g/dL (32.0-36.0); Mean Corpuscular Hemoglobin 32.3 pg (27.0-31.0); Mean Corpuscular Volume 96.1 fl (78.0-98.0); Mean Platelet Volume 8.8 fL (7.4-10.4); Platelet Count 225 10x3/uL (130-400); RBC Distribution Width 11.4 % (11.5-14.5); Red Blood Cell (RBC) Count 4.87 mill/uL (4.70-6.10); White Blood Cell (WBC) Count 9.8 10x3/uL (4.8-10.8)
[2022-12-05 11:20] LABS: ALT (SGPT) 30 U/L (8-55); AST (SGOT) 16 U/L (5-34); Albumin 4.4 g/dL (3.5-5.0); Alkaline Phosphatase 65 U/L (40-110); Anion Gap 15 mmol/L (10-20); BUN (Urea Nitrogen) 9 mg/dL (8.9-20.6); Bilirubin, Total 0.5 mg/dL (0.2-1.2); Calc. Creatinine Clearance 0 mL/min (70-130); Carbon Dioxide 21 mmol/L (22-29); Chloride 100 mmol/L (98-107); Estimated GFR 100; Globulin 3.3 g/dL (2.4-3.5); Glucose 369 mg/dL (70-105); Potassium 4.8 mmol/L (3.5-5.1); Protein, Total 7.7 g/dL (6.0-8.3); Sodium 131 mmol/L (136-145)
[2022-12-05 11:22] LABS: Acetaminophen Less than 10.0 mcg/mL (10.0-30.0); Alcohol Less than 10 mg/dL (Less than 10); CK (CPK) 140 U/L (30-200); Lipase 348 U/L (8-78); Salicylate Less than 8.0 mg/dL (15.0-30.0)
[2022-12-05 11:36] LABS: SARS-CoV-2 NAA Rapid Test Not Detected (NotDetected)
[2022-12-05 11:51] LABS: Bilirubin Negative (Negative); Blood, Urine Negative (Negative); Clarity Clear (Clear); Glucose, Urine (Dipstick) Greater than 1000 mg/dL (Negative); Ketone, Urine 60 mg/dL (Negative); Leukocyte Negative Leu/uL (Negative); Nitrite Negative (Negative); Protein, Urine (Dipstick) Negative (Neg-Trace); Urobilinogen Normal mg/dL (Less than 2); pH, Urine 5.5 (5.0-9.0)
[2022-12-05 11:54] LABS: Specific Gravity, Urine 1.047 (1.002-1.036)
[2022-12-05 11:59] LABS: Amphetamine Not Detected (NotDetected); Barbiturates Screen Not Detected (NotDetected); Benzodiazepine Screen Not Detected (NotDetected); Cocaine Metabolite Screen Not Detected (NotDetected); Methadone Not Detected (NotDetected); Methamphetamine Not Detected (NotDetected); Opiate Screen Not Detected (NotDetected); Oxycodone Screen Not Detected (NotDetected); Phencyclidine (PCP) Not Detected (NotDetected); THC/Cannabinoid Screen Detected (NotDetected); Tricyclic Screen Not Detected (NotDetected)
[2022-12-05] MEDS ORDERED: Lidocaine Viscous Sol 2% 15 ml UD Cup ONE (12:14)
[2022-12-05] MEDS ORDERED: Aspirin Chewable 81 MG TAB ONE (12:14)
[2022-12-05] MEDS ORDERED: Mag-Al 1200 mg/1200 mg/30 ML UDCUP ONE (12:14)
[2022-12-05 12:42] LABS: Actual Bicarbonate (HCO3v) 18 mEq/L (22-28); Analyzer IN Cardio ER; Base Excess -5.6 mEq/L (-2.0 to +3.0); Calcium, Ionized (venous) 1.02 mmol/L (1.16-1.32); Chloride (VBG) 103 mmol/L (98-106); Hemoglobin (Hb) 15.9 g/dL (13.2-17.3); Potassium (VBG) 3.81 mmol/L (3.70-5.30); Sodium 130.2 mmol/L (133-146); pH (venous) 7.38 (7.32-7.43)
[2022-12-05 13:26] LABS: Troponin I Less than 0.010 ng/mL (< 0.028)
[2022-12-05] MEDS ORDERED: Iopamidol-370 76% 500 ML 1 ML ONE (14:14)
== END 2022-12-05 14:49 | disposition home or self-care (01) ==
LOC: ERS 10:02
DX: E86.0 Dehydration (principal); R19.7 Diarrhea, unspecified; R55 Syncope and collapse; I10 Essential (primary) hypertension; E11.9 Type 2 diabetes mellitus without complications; F17.210 Nicotine dependence, cigarettes, uncomplicated; Z20.822 Contact with and (suspected) exposure to COVID-19
CPT/HCPCS: 36415; 36416; 51701; 70450; 71045; 74177; 80053; 80306; 80307; 81003; 82550; 82805; 83605; 83690; 84443; 84484; 85025; 93005; 96360; 96361; Q9967

== ENCOUNTER 2024-01-22 14:59 | Emergency (ER) | payer OTHER ==
[~2024-01-22 14:59] MED LIST: Iopamidol-370 76% 500 ML MDV (1 ML CHARGE) ONE
[2024-01-22] MEDS ORDERED: fentaNYL 50 mcg/mL 1 mL Vial ONE (15:22)
[2024-01-22 16:07] LABS: #Basophils 0.1 thou/uL (0.0-0.2); #Eosinphils 0.3 thou/uL (0.0-0.7); #Monocytes 0.7 thou/uL (0.11-0.59); #Neutrophils 3.5 thou/uL (1.40-6.50); %Basophils 0.8 % (0.0-1.0); %Eosinophils 3.8 % (0.0-10.0); %Lymphocytes 37.4 % (21.0-51.0); %Monocytes 9.8 % (0.0-10.0); %Neutrophils 47.9 % (42.0-75.0); Hematocrit 38.8 % (42.0-52.0); Hemoglobin 13.4 g/dL (14.0-18.0); Mean Corpuscular HGB CONC 34.5 g/dL (32.0-36.0); Mean Corpuscular Volume 89.8 fl (78.0-98.0); Mean Platelet Volume 9.6 fL (7.4-10.4); Platelet Count 260 10x3/uL (130-400); RBC Distribution Width 12.3 % (11.5-14.5); Red Blood Cell (RBC) Count 4.32 mill/uL (4.70-6.10); White Blood Cell (WBC) Count 7.3 10x3/uL (4.8-10.8)
[2024-01-22 16:36] LABS: ALT (SGPT) 23 U/L (8-55); AST (SGOT) 14 U/L (5-34); Albumin 3.7 g/dL (3.5-5.0); Alkaline Phosphatase 78 U/L (40-110); Anion Gap 11 mmol/L (10-20); BUN (Urea Nitrogen) 7 mg/dL (8.9-20.6); Bilirubin, Total 0.3 mg/dL (0.2-1.2); Calc. Creatinine Clearance 0 mL/min (70-130); Calcium 8.5 mg/dL (7.8-10.44); Carbon Dioxide 23 mmol/L (22-29); Chloride 104 mmol/L (98-107); Estimated GFR 116; Globulin 2.8 g/dL (2.4-3.5); Glucose 206 mg/dL (70-105); Potassium 4.4 mmol/L (3.5-5.1); Protein, Total 6.5 g/dL (6.0-8.3); Sodium 134 mmol/L (136-145)
== END 2024-01-22 17:15 | disposition home or self-care (01) ==
LOC: ERS 14:59
DX: S13.9XXA Sprain of joints and ligaments of unspecified parts of neck, initial encounter (principal); M54.6 Pain in thoracic spine; M79.661 Pain in right lower leg; M79.601 Pain in right arm; E11.9 Type 2 diabetes mellitus without complications; I10 Essential (primary) hypertension; F17.210 Nicotine dependence, cigarettes, uncomplicated; V43.92XA Unspecified car occupant injured in collision with other type car in traffic accident, initial encounter
CPT/HCPCS: 70450; 71260; 72125; 74177; 80053; 85025; 93005; 96374; J3010; Q9967

== ENCOUNTER 2024-04-06 15:50 | Outpatient (CLI) | payer OTHER | END 2024-04-06 15:51 | disposition home or self-care (01) | LOC: BICRAD 15:50 | PROVIDERS: ATTEND Family Medicine | DX: M25.531 Pain in right wrist (principal) ==